=== PATIENT | female | born 1970 | race Caucasian/White ===

== ENCOUNTER 2016-05-12 20:25 | Emergency (ER) | payer OTHER ==
--- NOTE | 2016-05-12 22:39 | ED NURSING NOTES ---
Clinical Report - Nurses [facility] [address] [place] [address] 05/12/2016 20:26 Patient: POLLY CALHOUN TRIAGE Triage time 20:35 May 12 2016. --20:38 Carl Carney R.N. Acuity: LEVEL 3. Chief Complaint: (High Blood Sugar). Alert. JAVIER COMA SCORE: [place] Coma Scale: 15- eyes open spontaneously (4); best verbal response- oriented x 4 (5); best motor response- obeys commands (6). --20:45 Carl Carney R.N. 20:40 05/12/16. BP: 155/83. HR: 94. RR: 16. O2 saturation: 94%. Temp: 98.8 F (oral). Pain level now: 03/11. Additional comments: Slight MORGAN. --20:45 Carl Carney R.N. Weight: 121.1 kg stated. Height/Length: 62 inches Per Patient. BMI: 48.9. --20:37 Carl Carney R.N. Medications Abilify Oral. Atorvastatin Calcium Oral. Effexor XR Oral. Glimepiride Oral (Tablet 4 mg) 2 tablets, daily. LamoTRIgine Oral. Magnesium Oral. MetFORMIN HCl Oral. Omeprazole Oral. TraZODone HCl Oral. --20:46 Carl Carney R.N. Medication/allergy information source: the patient. --20:46 Carl Carney R.N. Allergies Latuda. [place]. Risperdal. --20:46 Carl Carney R.N. History Arrived by private vehicle. Historian: patient. Unaccompanied. Primary physician (Vernell Davenport). --20:38 Carl Carney R.N. ( High Blood Sugar associated with N/Dry heaves and MORGAN). This started just prior to arrival and today. She has had weakness. Treatment HAZMAT TECHNICIAN: None. PAST MEDICAL HX: Immunizations: status is unknown. The patient is post-menopausal. Denies current . SOCIAL HX: Light tobacco smoker (cigarette)- less than 1/2 a pack per day (smoked for 34 years). No alcohol use or drug use. No infectious disease exposure. ABUSE ASSESSMENT: No report of abuse. FALL RISK ASSESSMENT: Fall risk assessment completed. No fall risk identified. NUTRITIONAL RISK ASSESSMENT: The nutritional risk assessment revealed no deficiencies. FUNCTIONAL ASSESSMENT: Functional assessment: no impairments noted. LEARNING NEEDS ASSESSMENT: The learning needs assessment revealed no barriers. SKIN INTEGRITY ASSESSMENT: Skin integrity risk assessment completed. No skin integrity risk identified. --20:45 Carl Carney R.N. ( Pt states that she was recently seen at the [facility] for Bronchitis/Respiratory problems and placed on and finished a course of antibiotics.). --20:50 Carl Carney R.N. PROBLEMS: Bipolar Disorder. Elevated LFTs. Pneumonia. COPD - Chronic Obstructive Pulmonary Disease. Bronchitis. Diabetes Mellitus. --20:43 Carl Carney R.N. Short Term Memory Problems. --20:49 Carl Carney R.N. ADDITIONAL SURGERIES: Hysterectomy. --20:44 Carl Carney R.N. Interventions ID band on patient. To treatment room. --20:45 Carl Carney R.N. PHYSICAL ASSESSMENT Ambulatory to room. GENERAL / NEURO / PSYCH: Alert. Oriented X 4. Appears in pain. HEENT: No facial asymmetry noted. RESPIRATORY: Respirations not labored. CVS: Pulses within normal limits. GI / : Abdomen soft and nontender. SKIN: Skin intact. Skin is warm and dry. Normal skin turgor. --20:47 Carl Carney R.N. NURSING PROGRESS NOTES 20:40. Finger stick glucose: 253 mg/dL; performed by [employer]; result shown to the ED physician. --20:47 Carl Carney R.N. Patient gowned. Reassurance given to the patient. Patient identifiers checked. Call light placed in reach. Side rails up. Bed placed in lowest position. Brakes of bed on. Patient ready for evaluation- chart flagged and ED physician notified. --20:48 Carl Carney R.N. 21:30 05/12/2016 Site #1 started via IV in the right forearm with an 20g angiocath, with aseptic technique and good blood return; one attempt. Blood drawn: rainbow set. Labeled in the presence of the patient and sent to the lab. Saline lock flushed with 10 mL saline. --21:39 Carl Carney R.N. 22:34 05/12/2016 Started 1 gm of Ceftriaxone IVPB in bag #1 50 mL; at 100 mL/hr over 30 minute(s) via site #1; Allergies verified and confirmed 5 rights. IV patency established. IV site checked: no pain, redness, or swelling. IV flushed thoroughly pre- and post-medication administration. --22:44 Carl Carney R.N. DISPOSITION / DISCHARGE 23:03 05/12/2016 Site #1 removed upon discharge. --23:03 Joy Peterson R.N. 23:05/12/2016 Ceftriaxone IVPB Discontinued: bag #1 completed upon arrival. Total amount infused: 50 mL. IV patency established. IV site checked: no pain, redness, or swelling. IV flushed thoroughly. --23:03 Joy Peterson R.N. 23:04 05/12/16. Departure time: 23:May 12 2016. Condition at departure: improved and stable. The goals identified in the patient's plan of care were met. No learning barriers present. Discharge instructions provided and reviewed with the patient. Reviewed medication(s) side effects, precautions, dosing and course information. Prescription(s) given to the patient. Reviewed fever care instructions. Reviewed referral to a primary care physician for followup. Summary of care provided to patient via paper. Patient verbalized understanding. Written instructions provided in Yoruba. The patient was discharged home and unaccompanied at time of discharge. She left the Emergency Department ambulatory and via private vehicle. Patient driving. --23:04 Joy Peterson R.N. 23:04 05/12/16. BP: 149/90. HR: 102. RR: 18. O2 saturation: 93%. Temp: 98.2 F. Pain level now 2/10. --23:04 Joy Peterson R.N. Locked/Released at 05/12/2016 23:04 by Joy Peterson R.N.
--- NOTE | 2016-05-12 22:39 | ED NURSING NOTES ---
Clinical Report - Nurses [facility] [address] [place] [address] 05/12/2016 20:26 Patient: POLLY CALHOUN TRIAGE Triage time 20:35 May 12 2016. --20:38 Carl Carney R.N. Acuity: LEVEL 3. Chief Complaint: (High Blood Sugar). Alert. JAVIER COMA SCORE: [place] Coma Scale: 15- eyes open spontaneously (4); best verbal response- oriented x 4 (5); best motor response- obeys commands (6). --20:45 Carl Carnye R.N. 20:40 05/12/16. BP: 155/83. HR: 94. RR: 16. O2 saturation: 94%. Temp: 98.8 F (oral). Pain level now: 03/11. Additional comments: Slight MORGAN. --20:45 Carl Carney R.N. Weight: 121.1 kg stated. Height/Length: 62 inches Per Patient. BMI: 48.9. --20:37 Carl Carney R.N. Medications Abilify Oral. Atorvastatin Calcium Oral. Effexor XR Oral. Glimepiride Oral (Tablet 4 mg) 2 tablets, daily. LamoTRIgine Oral. Magnesium Oral. MetFORMIN HCl Oral. Omeprazole Oral. TraZODone HCl Oral. --20:46 Carl Carney R.N. Medication/allergy information source: the patient. --20:46 Carl Carney R.N. Allergies Latuda. [place]. Risperdal. --20:46 aCrl Carney R.N. History Arrived by private vehicle. Historian: patient. Unaccompanied. Primary physician (Vernell Davenport). --20:38 Carl Carney R.N. ( High Blood Sugar associated with N/Dry heaves and MORGAN). This started just prior to arrival and today. She has had weakness. 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 PAST MEDICAL HX: Immunizations: status is unknown. The patient is post-menopausal. Denies current . SOCIAL HX: Light tobacco smoker (cigarette)- less than 1/2 a pack per day (smoked for 34 years). No alcohol use or drug use. No infectious disease exposure. ABUSE ASSESSMENT: No report of abuse. FALL RISK ASSESSMENT: Fall risk assessment completed. No fall risk identified. NUTRITIONAL RISK ASSESSMENT: The nutritional risk assessment revealed no deficiencies. FUNCTIONAL ASSESSMENT: Functional assessment: no impairments noted. LEARNING NEEDS ASSESSMENT: The learning needs assessment revealed no barriers. SKIN INTEGRITY ASSESSMENT: Skin integrity risk assessment completed. No skin integrity risk identified. --20:45 Carl Carney R.N. ( Pt states that she was recently seen at the [facility] for Bronchitis/Respiratory problems and placed on and finished a course of antibiotics.). --20:50 Carl Carney R.N. PROBLEMS: Bipolar Disorder. Elevated LFTs. Pneumonia. COPD - Chronic Obstructive Pulmonary Disease. Bronchitis. Diabetes Mellitus. --20:43 Carl Carney R.N. Short Term Memory Problems. --20:49 Carl Carney R.N. ADDITIONAL SURGERIES: Hysterectomy. --20:44 Carl Carney R.N. Interventions ID band on patient. To treatment room. --20:45 Carl Carney R.N. PHYSICAL ASSESSMENT Ambulatory to room. GENERAL / NEURO / PSYCH: Alert. Oriented X 4. Appears in pain. HEENT: No facial asymmetry noted. RESPIRATORY: Respirations not labored. CVS: Pulses within normal limits. GI / : Abdomen soft and nontender. SKIN: Skin intact. Skin is warm and dry. Normal skin turgor. --20:47 Carl Carney R.N. NURSING PROGRESS NOTES 20:40. Finger stick glucose: 253 mg/dL; performed by [employer]; result shown to the ED physician. --20:47 Carl Carney R.N. Patient gowned. Reassurance given to the patient. Patient identifiers checked. Call light placed in reach. Side rails up. Bed placed in lowest position. Brakes of bed on. Patient ready for evaluation- chart flagged and ED physician notified. --20:48 Carl Carney R.N. 21:30 05/12/2016 Site #1 started via IV in the right forearm with an 20g angiocath, with aseptic technique and good blood return; one attempt. Blood drawn: rainbow set. Labeled in the presence of the patient and sent to the lab. Saline lock flushed with 10 mL saline. --21:39 Carl Carney R.N. 22:34 05/12/2016 Started 1 gm of Ceftriaxone IVPB in bag #1 50 mL; at 100 mL/hr over 30 minute(s) via site #1; Allergies verified and confirmed 5 rights. IV patency established. IV site checked: no pain, redness, or swelling. IV flushed thoroughly pre- and post-medication administration. --22:44 Carl Carney R.N. DISPOSITION / DISCHARGE 23:03 05/12/2016 Site #1 removed upon discharge. --23:03 Joy Peterson R.N. 23:05/12/2016 Ceftriaxone IVPB Discontinued: bag #1 completed upon arrival. Total amount infused: 50 mL. IV patency established. IV site checked: no pain, redness, or swelling. IV flushed thoroughly. --23:03 Joy Peterson R.N. 23:04 05/12/16. Departure time: 23:May 12 2016. Condition at departure: improved and stable. The goals identified in the patient's plan of care were met. No learning barriers present. Discharge instructions provided and reviewed with the patient. Reviewed medication(s) side effects, precautions, dosing and course information. Prescription(s) given to the patient. Reviewed fever care instructions. Reviewed referral to a primary care physician for followup. Summary of care provided to patient via paper. Patient verbalized understanding. Written instructions provided in Kazakh. The patient was discharged home and unaccompanied at time of discharge. She left the Emergency Department ambulatory and via private vehicle. Patient driving. --23:04 Joy Peterson R.N. 23:04 05/12/16. BP: 149/90. HR: 102. RR: 18. O2 saturation: 93%. Temp: 98.2 F. Pain level now 2/10. --23:04 Joy Peterson R.N. Locked/Released at 05/12/2016 23:04 by Joy Peterson R.N.
--- NOTE | 2016-05-12 22:39 | ED ORDER SUMMARY ---
..... Patient: POLLY CALHOUN OrderSheet [facility] VisitID: [id number] [address] [place] [address] 45y, F Registration Date/Time: 05/12/2016 ORDER SHEET Weight: 121.1 kg (stated) Allergies: Latuda, [place], Risperdal GENERAL ORDERS: CMP Urgent (20:35 05/12/2016 JRomanelli R.N. verbal order read back to Mady Vaughn) (Ack 20:45 AMcQuoid ER Tech1) (21:40 JRomanelli R.N.) UA-Culture if indicated Urgent (20:35 05/12/2016 JRomanelli R.N. verbal order read back to Mady Vaughn) (Ack 20:45 AMcQuoid ER Tech1) (20:50 JRomanelli R.N.) POC Glucose (20:36 05/12/2016 JRomanelli R.N. verbal order read back to Mady Vaughn) (Ack 20:45 AMcQuoid ER Tech1) (21:40 JRomanelli R.N.) Chest 2V Urgent (21:42 05/12/2016 HBivens A.R.N.P.) (Ack 21:43 AMcQuoid ER Tech1) (22:07 MCampbell) CBC w Diff Urgent (21:42 05/12/2016 HBivens A.R.N.P.) (Ack 21:43 AMcQuoid ER Tech1) (22:03 AMcQuoid ER Tech1) MEDICATION ORDERS: IV FLUIDS: IV Saline Lock (20:35 05/12/2016 JRomanelli R.N. verbal order read back to Mady Vaughn) (21:39 JRomanelli R.N.) IV NS : initial bolus 1000 mL (1000 mL/hr), then none - (NOW) (21:42 05/12/2016 HBivens A.R.N.P.) (Cancelled: Patient [id number] JRomanelli R.N.) Ceftriaxone IV 1 gm/50mL (NOW) (22:38 05/12/2016 HBivens A.R.N.P.) (22:44 JRomanelli R.N.) ORDER SHEET NOTES: [Electronically signed by Joy Peterson R.N. (23:04 05/12/2016)] [Electronically signed by Greer Ramirez (16:40 05/13/2016)] [Electronically locked/signed by Joy Peterson R.N. (23:04 05/12/2016)]
--- NOTE | 2016-05-12 22:39 | ED CLINICAL REPORT ---
Clinical Report - Physicians/Mid Levels [facility] [address] [place] [address] 05/12/2016 20:26 Patient: POLLY CALHOUN Time Seen: 21:00; initial patient contact, initial documentation, patient care assumed. Arrived- By private vehicle. Historian- patient. HISTORY OF PRESENT ILLNESS Chief Complaint: ABNORMAL GLUCOSE. This started today and is still present but is improving. The patient has had muscle aches. (sugar at home was 422). Similar symptoms previously: Chronically, milder. Recent medical care: The patient was seen recently in the office. ( went to x2 wks ago for uri stuff and feeling sick, was told she had bronchitis, some cough syrup given with codiene, cough pill and some other orange pill, pt still feels sick and doesn't feel good, still coughing, no f/u). REVIEW OF SYSTEMS The patient has had low grade fever of 100 F (for 2 weeks). No sore throat, sinus drainage, difficulty breathing, chest pain or abdominal pain. No vomiting or diarrhea. She has had nasal congestion. She has had a mild cough productive of yellow sputum. All systems otherwise negative, except as recorded above. PAST HISTORY See nurses notes. PROBLEMS: Bipolar Disorder. Elevated LFTs. Pneumonia. COPD - Chronic Obstructive Pulmonary Disease. Bronchitis. Diabetes Mellitus. --20:43 Carl Carney RBarbaraN. Short Term Memory Problems. --20:49 Carl Carney R.N. ADDITIONAL SURGERIES: Hysterectomy. --20:44 Carl Carney R.N. SOCIAL HISTORY Light tobacco smoker. No alcohol use or drug use. No recent travel. Is a local resident. FAMILY HISTORY Negative. ADDITIONAL NOTES The nursing notes have been reviewed with agreement regarding the chief complaint, HPI, ROS, PMH and patient medications and allergies. PHYSICAL EXAM Vital Signs: 05/12/2016 20:40 BP: 155/83. HR: 94. RR: 16. O2 saturation: 94%. Temp: 98.8 F. Pain level now: 03/11. Have been reviewed as normal and appear to be correct. Appearance: Alert. No acute distress. Eyes: Pupils equal, round and reactive to light. Eyes normal inspection. ENT: Ears normal. Nose normal. Pharynx normal. Neck: Normal inspection. Neck supple. CVS: Normal heart rate and rhythm. Heart sounds normal. Pulses normal. Respiratory: No respiratory distress. Breath sounds abnormal. Mild rales present diffusely in both lungs. Chest nontender. Abdomen: No visible injury. Soft and nontender. Moderately obese. Back: Normal inspection. Skin: Skin warm and dry. Normal skin color. No rash. Normal skin turgor. Extremities: Extremities exhibit normal ROM. No lower extremity edema. Neuro: Oriented X 3. No motor deficit. No sensory deficit. LABS, X-RAYS, AND EKG Chest X-ray: Infiltrate in the left lower lobe. Consistent with pneumonia. Normal Chest X-Ray. (and reviewed by dr singh). The X-rays were independently viewed by me. Laboratory Tests: UA-Culture if indicated: (EDER: 05/12/2016 20:32) ( [facility] 05/12/2016 20:59) Final results Test Result Flag Units (Reference) URINE COLOR YELLOW URINE APPEARANCE CLEAR URINE GLUCOSE 3+ (NEGATIVE) URINE BILIRUBIN NEGATIVE (NEGATIVE) URINE KETONE NEGATIVE (NEGATIVE) URINE SPECIFIC GRAVITY >= 1.030 (1.010-1.030) URINE PH 6.0 (5.0-8.0) URINE PROTEIN 2+ (NEGATIVE) URINE UROBILINOGEN 0.2 EU/dL (0.2-1.0) URINE NITRITE NEGATIVE (NEGATIVE) URINE BLOOD 1+ (NEGATIVE) URINE LEUK ESTERASE NEGATIVE (NEGATIVE) URINE RBC 1-3 rbc/hpf (0-1) URINE WBC 0-1 wbc/hpf (0-1) URINE EPITHELIAL CELLS 1-3 EPI/hpf (0-5) URINE BACTERIA NONE SEEN (NONE SEEN) URINE COMMENT CULT NOT INDICATED URINE CULTURES ARE SET-UP BASED ON THE FOLLOWING CRITERIA:POSITIVE NITRITEPOSITIVE LEUKOCYTE ESTERASEGREATER THAN 10 WHITE BLOOD CELLSMODERATE (2+) OR GREATER BACTERIA CBC w Diff: (EDER: 05/12/2016 21:30) ( [facility] 05/12/2016 21:52) Final results Test Result Flag Units (Reference) WHITE BLOOD COUNT 12.3 H K/uL (4.5-11.5) RED BLOOD COUNT 5.46 H M/uL (4.00-5.20) HEMOGLOBIN 15.5 gm/dL (12.0-16.0) HEMATOCRIT 46.2 H % (36.0-46.0) MEAN CELL VOLUME 85 fL (80-100) MEAN CORPUSCULAR HGB 29 pg (26-34) MEAN CORPUSCULAR HGB CONC 34 g/dL (31-37) RED CELL DISTRIBUTION WIDTH 13.6 % (11.6-14.8) PLATELET COUNT 290 K/uL (150-400) NEUTROPHIL % 55.2 % (50-75) LYMPH % 33.0 % (25-40) MONO % 5.2 % (3-14) EOSINOPHIL % 4.6 H % (0-4) BASOPHIL % 2.0 % (0-2) CMP: (EDER: 05/12/2016 21:30) ( MsgRcvd 05/12/2016 22:12) Final results Test Result Flag Units (Reference) GLUCOSE 207 H mg/dL (70-110) BUN 16 mg/dL (7-18) CREATININE 0.5 L mg/dL (0.6-1.3) Estimated GFR >60 mL/min Estimated GFR- >60 mL/min Note: Persistent reduction over 3 months in eGFR<60 mL/min/1.73 m2 defines CKD. Patients with eGFR values>=60 mL/min/1.73 m2 may also have CKD if evidence ofpersistent proteinuria. Additional information may be foundat www.kidney.org. SODIUM 138 mmol/L (136-145) POTASSIUM 3.7 mmol/L (3.5-5.1) CHLORIDE 100 mmol/L (98-107) CARBON DIOXIDE 24 mmol/L (21-32) CALCIUM 9.8 mg/dL (8.5-10.1) TOTAL PROTEIN 7.6 g/dL (6.4-8.2) ALBUMIN 3.6 g/dL (3.3-5.0) BILIRUBIN, TOTAL 0.2 mg/dL (0.0-1.0) ALKALINE PHOSPHATASE 150 H U/L (46-116) AST (SGOT) 70 H U/L (15-37) ALT (SGPT) 97 H U/L (12-78) . Bedside Tests: Glucose: mild hyperglycemia - 20:40. Finger stick glucose: 253 mg/dL; performed by tech; result shown to the ED physician. --20:47 Carl Carney R.N. (performed at bedside). PROGRESS AND PROCEDURES Course of Care: 22:38 05/12/16. pt does not want the ivf, and asking if she really needs them, agreed not to. Patient counseled in person regarding the patient's stable condition, test results and diagnosis. 22:38. Differential Diagnosis: Other possible considerations: dm, hyperglycemia, dka, uri, bronchitis, pneumonia. Above considerations are based on history and physical exam. Differential diagnosis was discussed with patient. Disposition: Discharged home in good and improved condition (22:39). Condition: good and stable. CLINICAL IMPRESSION Moderate hyperglycemia Bacterial and lobar pneumonia. Vital signs recorded and reviewed; empiric antibiotics given in the ED and prescribed. No hypoxemia, respiratory failure or sepsis. INSTRUCTIONS Alternate Tylenol (Acetaminophen) and Motrin (Ibuprofen) for fever, temperature greater than 101 degrees orally. Take according to label instructions. Drink plenty of fluids. Warnings: GENERAL WARNINGS: Return or contact your physician immediately if your condition worsens or changes unexpectedly, if not improving as expected, or if other problems arise. Specifically return if problem worsens. Prescription Medications: Zithromax 250 mg tablets: take 2 orally today, followed by 1 daily for the next 4 days. No refills. Substitution is permissible. Follow-up: Follow up with your doctor in about three days even if well. Call for an appointment. Summary of care provided to patient. Understanding of the discharge instructions verbalized by patient. (Electronically signed by Greer Ramirez A.R.N.P. 05/13/2016 16:40)
--- NOTE | 2016-05-12 22:39 | ED ORDER SUMMARY ---
..... Patient: POLLY CALHOUN OrderSheet [facility] VisitID: [id number] [address] [place] [address] 45y, F Registration Date/Time: 05/12/2016 ORDER SHEET Weight: 121.1 kg (stated) Allergies: [place], [place], Risperdal GENERAL ORDERS: CMP Urgent (20:35 05/12/2016 JRomanelli R.N. verbal order read back to Mady Vaughn) (Ack 20:45 AMcQuoid ER Tech1) (21:40 JRomanelli R.N.) UA-Culture if indicated Urgent (20:35 05/12/2016 JRomanelli R.N. verbal order read back to Mady Vaughn) (Ack 20:45 AMcQuoid ER Tech1) (20:50 JRomanelli R.N.) POC Glucose (20:36 05/12/2016 JRomanelli R.N. verbal order read back to Mady Vaughn) (Ack 20:45 AMcQuoid ER Tech1) (21:40 JRomanelli R.N.) Chest 2V Urgent (21:42 05/12/2016 HBivens A.R.N.P.) (Ack 21:43 AMcQuoid ER Tech1) (22:07 MCampbell) CBC w Diff Urgent (21:42 05/12/2016 HBivens A.R.N.P.) (Ack 21:43 AMcQuoid ER Tech1) (22:03 AMcQuoid ER Tech1) MEDICATION ORDERS: IV FLUIDS: IV Saline Lock (20:35 05/12/2016 JRomanelli R.N. verbal order read back to Mady Vaughn) (21:39 JRomanelli R.N.) IV NS : initial bolus 1000 mL (1000 mL/hr), then none - (NOW) (21:42 05/12/2016 HBivens A.R.N.P.) (Cancelled: Patient [id number] JRomanelli R.N.) Ceftriaxone IV 1 gm/50mL (NOW) (22:38 05/12/2016 HBivens A.R.N.P.) (22:44 JRomanelli R.N.) ORDER SHEET NOTES: [Electronically signed by Joy Peterson R.N. (23:04 05/12/2016)] [Electronically signed by Greer Ramirez (16:40 05/13/2016)] [Electronically locked/signed by Joy Peterson R.N. (23:04 05/12/2016)]
--- NOTE | 2016-05-13 06:20 | DIAGNOSTIC IMAGING REPORT ---
PROCEDURE: XR CHEST 2 VIEW INDICATION: FEVER TECHNIQUE: PA and lateral views. COMPARISON: Compared to chest x-ray 01/21/2016. FINDINGS: There are minor parenchymal change at the left lung base (most likely scarring). Lungs are otherwise clear. Heart and mediastinum are normal. Thorax is normal. IMPRESSION: 1. Negative chest.
--- NOTE | 2016-05-13 16:40 | ED MED RECONCILIATION SUMMARY ---
Patient: POLLY CALHOUN Medication Reconciliation Report [facility] VisitID: [id number] [address] [place] [address] 45y, F Registration Date/Time: 05/12/2016 Weight: 121.1 kg Height/Length: 62 in. BMI: 48.9 ALLERGIES: Latuda, [place], Risperdal The patient's Home Medications are listed below: THE FOLLOWING MEDICATIONS NEED TO BE RECONCILED: Abilify Oral Atorvastatin Calcium Oral Effexor XR Oral Glimepiride Oral (4 mg) 2 tablets, daily LamoTRIgine Oral Magnesium Oral MetFORMIN HCl Oral Omeprazole Oral TraZODone HCl Oral The source(s) of the original Home Medication information: patient The following Medications were given to the patient in the Emergency Department: Ceftriaxone [IVPB] IVPB bolus 0, then 1 gm 100 mL/hr, administered: 05/12/2016 10:34:00 PM The following Medications were prescribed to the patient: Zithromax 250 mg tablets: take 2 orally today, followed by 1 daily for the next 4 days. No refills. Substitution is permissible. -- Greer Ramirez A.R.N.P.
--- NOTE | 2016-05-13 16:40 | ED MAR SUMMARY ---
..... Medication Administration Record [facility] [address] [place] [address] Patient: POLLY CALHOUN Visit ID: [id number] 45y, F Weight: 121.1 kg Height/Length: 62 in BMI: 48.9 ALLERGIES: [place], [place], Risperdal Start 22:34 05/12/2016 Carl Carney, R.N., Stop 23:03 05/12/2016 Joy Peterson RMiguelito Medication Administered: CEFTRIAXONE [IVPB], Dose: 1 gm IVPB over 30 minute(s), Rate: 100 mL/hr, Dispensed: 50 mL bag, Site: #1 right forearm. Medication Ordered: Ceftriaxone IV 1 gm/50mL (NOW).
--- NOTE | 2016-05-13 16:40 | ED MAR SUMMARY ---
..... Medication Administration Record [facility] [address] [address] Patient: POLLY CALHOUN Visit ID: [id number] 45y, F Weight: 121.1 kg Height/Length: 62 in BMI: 48.9 ALLERGIES: [place], [place], Risperdal Start 22:34 05/12/2016 Carl Carney, R.N., Stop 23:03 05/12/2016 Joy Peterson RMiguelito Medication Administered: CEFTRIAXONE [IVPB], Dose: 1 gm IVPB over 30 minute(s), Rate: 100 mL/hr, Dispensed: 50 mL bag, Site: #1 right forearm. Medication Ordered: Ceftriaxone IV 1 gm/50mL (NOW).
--- NOTE | 2016-05-13 16:40 | ED MED RECONCILIATION SUMMARY ---
Patient: POLLY CALHOUN Medication Reconciliation Report [facility] VisitID: [id number] [address] [place] [address] 45y, F Registration Date/Time: 05/12/2016 Weight: 121.1 kg Height/Length: 62 in. BMI: 48.9 ALLERGIES: Latuda, [place], Risperdal The patient's Home Medications are listed below: THE FOLLOWING MEDICATIONS NEED TO BE RECONCILED: Abilify Oral Atorvastatin Calcium Oral Effexor XR Oral Glimepiride Oral (4 mg) 2 tablets, daily LamoTRIgine Oral Magnesium Oral MetFORMIN HCl Oral Omeprazole Oral TraZODone HCl Oral The source(s) of the original Home Medication information: patient The following Medications were given to the patient in the Emergency Department: Ceftriaxone [IVPB] IVPB bolus 0, then 1 gm 100 mL/hr, administered: 05/12/2016 10:34:00 PM The following Medications were prescribed to the patient: Zithromax 250 mg tablets: take 2 orally today, followed by 1 daily for the next 4 days. No refills. Substitution is permissible. -- Greer Ramirez A.R.N.P.
--- NOTE | 2016-05-13 16:40 | ED DISCHARGE INSTRUCTIONS ---
Patient: POLLY CALHOUN General Instructions [facility] VisitID: [id number] [address] [place] [address] 45y, F Registration Date/Time: 05/12/2016 Moderate hyperglycemia Bacterial and lobar pneumonia. Vital signs recorded and reviewed; empiric antibiotics given in the ED and prescribed. No hypoxemia, respiratory failure or sepsis. INSTRUCTIONS Alternate Tylenol (Acetaminophen) and Motrin (Ibuprofen) for fever, temperature greater than 101 degrees orally. Take according to label instructions. Drink plenty of fluids. Warnings: GENERAL WARNINGS: Return or contact your physician immediately if your condition worsens or changes unexpectedly, if not improving as expected, or if other problems arise. Specifically return if problem worsens. Prescription Medications: Zithromax 250 mg tablets: take 2 orally today, followed by 1 daily for the next 4 days. No refills. Substitution is permissible. Follow-up: Follow up with your doctor in about three days even if well. Call for an appointment. Summary of care provided to patient. Understanding of the discharge instructions verbalized by patient. ADDITIONAL INFORMATION Diabetes with High Blood Sugar You have been treated for high blood sugar (hyperglycemia). This may be becauseof an infection or other illness;eating too many sweets or starches ; not taking enough insulin. Home care High blood sugar may cause symptoms that you can learn to recognize, such as these: If you feel like your blood sugar may be too high, measure it using a blood or urine test. If it is above your usual range, use the "sliding scale"rRegular insulin dose your doctor gave you to correct this. If no "sliding scale" orders were given, contact your doctor for further advice. If your blood sugar is over 300, and you can't reach your doctor, go to the hospital emergency room. Monitor and write down your blood sugars - and insulin dose, if you take insulin - atleast twice a day. Do this before breakfast and before dinner. Do this for the next 3 to 5 days. Follow-up care Follow up with your health care provderduring the next week to review your blood sugar records. You will find out if you need to adjust your dose of insulin or other medicine for blood sugar. When to seek medical care Get prompt medical attention if either of these occur: High blood sugar.Symptoms are frequent urination, feeling dizzy, thirst, headache, nausea or vomiting, abdominal pain, and drowsiness or loss of consciousness. Low blood sugar. Symptoms are fatigue, headache, shakes, excess sweating, hunger, anxiety, reduced vision, drowsiness, weakness, confusion or loss of consciousness, and seizure. Diabetes (General Information) Cells of the body need glucose (sugar) for fuel. Insulin is the hormone in the body that lets glucose move from the blood into the cells. Diabetes is a chronic health condition where the body is not able to produce enough insulin, or does not respond well to its own insulin. Because the glucose in the blood cannot get into the cells, it builds up in the blood causing high blood sugar (hyperglycemia). Your actual blood sugar level is a result of the balance between several factors. These include what kind of food you eat and how much of it you eat, how much exercise you get, and the amount of insulin present in your body. Eating too much of the wrong kinds of food or not taking diabetes medicine on time can cause high blood sugar. Infections can cause high blood sugar even if you are taking medicines correctly. Missing meals, not eating enough food, or taking too much diabetes medicine can lead to low blood sugar. Untreated over long periods of time, diabetes can cause serious problems such as heart disease, stroke, kidney failure, blindness, nerve pain or loss of feeling in the legs and feet, and gangrene of the feet. With good treatment keeping your blood sugar under control, you can prevent or delay the complications of diabetes. Normal blood sugar levels are 70-130 one to two hours before a meal and not more than 180 two hours after a meal. Home Care: Follow your prescribed diabetic diet and take insulin or oral diabetic medicine exactly as ordered. Monitor blood sugars as advised. Keep a log of your results. This will help your doctor adjust your medicines to keep your blood sugar under control. Try to achieve your ideal weight. Proper diet and exercise can reduce or eliminate the need to take diabetes medicine. Avoid tobacco smoking, which worsens the effect of diabetes on your circulation. The risk of a heart attack in a diabetic is 15 times more likely if you smoke. Pay attention to good foot care. If you have lost feeling in your feet you may not notice an injury or infection. Check your feet and between your toes at least once a week. Wear a medical alert bracelet or carry a card in your wallet explaining that you are diabetic. In the event that you become very ill and are unable to give this information, it will help medical personnel provide proper care. If you become sick with a cold, the flu, or an infection (viral or bacterial), please do the following: Review your diabetes sick plan and contact your physician as instructed. You may have been advised to call the doctor immediately if: Your blood sugar is above 240 while taking your diabetes medication Your urine ketone levels are above normal or showing high levels of ketones You have been vomiting more than 6 hours You experience difficulty to trouble breathing You develop a high fever or you have had a fever for a couple of days and you aren't getting better You become light-headed and more sleepy than usual Keep taking your oral diabetes medicine (pills) even if you have been vomiting and feeling sick. Contact your doctor immediately for advice because you may need insulin to lower your blood sugar until you recover from your illness. Keep taking your insulin, even if you have been vomiting and feeling sick. Call your doctor immediately and ask if a temporary adjustment of your insulin dose is needed based on your blood glucose (sugar) results. Check your blood sugar every 2 to 4 hours, or at least 4 times a day. Check your keytones often. If you are vomiting and having diarrhea, monitor them more frequently. Don't skip meals. Try to eat small meals on a regular schedule, even if you do not have an appetite. Drink water or other calorie-free, non-caffeinated liquids to stay hydrated. If you are nauseated or vomiting, drink small amounts (sips, a teaspoon) every 5 minutes. To prevent dehydration, try to drink a cup or 8 ounces of fluids every hour while you are awake. Always carry a source of fast-acting sugar with you in case you get symptoms of low blood sugar (below 70). At the first sign of low blood sugar, eat or drink 15 to 20 grams of fast-acting sugar to raise your blood sugar. Examples include: 3 to 4 glucose tablets (found at most drugstores) 4 ounces (1/2 cup) of regular (not diet) softdrinks 4 ounces (1/2 cup) of any fruit juice 8 ounces (1 cup) of milk 5 to 6 pieces of hard candy 1 tablespoon of honey Check your blood sugar 15 minutes after treating yourself. If it is still low (below 70), take another 15 to 20 grams of fast-acting sugar. Test again in 15 minutes. If it returns to normal (70 or above), eat a snack or meal to keep your blood sugar in a safe range. If it remains low, call your doctor or go to an emergency room. Follow Up with your doctor as advised by our staff. For more information, contact the [place] [employer]. www.diabetes.org or 561-701-4848. Get Prompt Medical Attention if any of the following occur: HIGH BLOOD SUGAR: frequent urination, dizziness, drowsiness, thirst, headache, nausea or vomiting, abdominal pain, vision changes, fast breathing, confusion or loss of consciousness LOW BLOOD SUGAR: fatigue, headache, shakes, excess sweating, hunger, feeling anxious or restless, vision changes, drowsiness, weakness, confusion or loss of consciousness Chest pain or shortness of breath Dizziness or fainting Weakness of an arm or leg or one side of the face Trouble with speech or vision Fever Control (Adult) A fever is a natural reaction of the body to an illness. In most cases, the temperature itself is not harmful. It actually helps the body fight infections. A fever does not need to be treated unless you feel very uncomfortable. Home Care If you feel warm, check your temperature. If you feel very uncomfortable and your temperature is at or higher than 100.4F (38C) oral, you may take acetaminophen (Tylenol) every 4 to 6 hours. If you cant take or keep down oral medicine, ask your pharmacist for Tylenol suppositories, which you can get without a prescription. If the fever does not respond to acetaminophen within 1 hour, take ibuprofen (Advil or Motrin). If this works, keep taking the ibuprofen every 6 to 8 hours. Note: If you have chronic liver or kidney disease or ever had a stomach ulcer or GI bleeding, talk with your doctor before using these medications. If either medication alone does not keep the fever down, you may alternate the two medicines every 3 to 4 hours, only if your healthcare provider has instructed you to do so. For example, take Motrin then wait 3 hours, take Tylenol then wait 3 hours, take Motrin, and so on. Follow your healthcare providers instructions exactly. Clothing: Keep clothing light because excess body heat is lost through the skin. The fever will go up if you wear extra layers or wrap in blankets. Fluids: Fever causes the body to lose water through evaporation. Drink plenty of fluids such as water, juice, clear sodas, karl amaris, or lemonade. Do not use aspirin in anyone under 18 years of age who is ill with a fever. It can cause severe liver damage. Follow Up with your doctor or as advised by our staff if you do not get better after 48 hours. Get Prompt Medical Attention if any of the following occur: Fever does not get better after taking fever medication Fast or difficult breathing Earache, sinus pain, stiff or painful neck, headache, repeated diarrhea or vomiting You feel unusually irritable, drowsy, or confused A rash appears You feel weak or dizzy, or that you might faint Azithromycin Oral tablet What is this medicine? AZITHROMYCIN (az ith iglesia BARRON sin) is a macrolide antibiotic. It is used to treat or prevent certain kinds of bacterial infections. It will not work for colds, flu, or other viral infections. How should I use this medicine? Take this medicine by mouth with a full glass of water. Follow the directions on the prescription label. The tablets can be taken with food or on an empty stomach. If the medicine upsets your stomach, take it with food. Take your medicine at regular intervals. Do not take your medicine more often than directed. Take all of your medicine as directed even if you think your are better. Do not skip doses or stop your medicine early. Talk to your woodworking bench carpenter regarding the use of this medicine in children. Special care may be needed. What side effects may I notice from receiving this medicine? Side effects that you should report to your doctor or health child care specialist as soon as possible: allergic reactions like skin rash, itching or hives, swelling of the face, lips, or tongue confusion, nightmares or hallucinations dark urine difficulty breathing hearing loss irregular heartbeat or chest pain pain or difficulty passing urine redness, blistering, peeling or loosening of the skin, including inside the mouth white patches or sores in the mouth yellowing of the eyes or skin Side effects that usually do not require medical attention (report to your doctor or health child care specialist if they continue or are bothersome): diarrhea dizziness, drowsiness headache stomach upset or vomiting tooth discoloration vaginal irritation What may interact with this medicine? Do not take this medicine with any of the following medications: lincomycin This medicine may also interact with the following medications: amiodarone antacids cyclosporine digoxin magnesium nelfinavir phenytoin warfarin What if I miss a dose? If you miss a dose, take it as soon as you can. If it is almost time for your next dose, take only that dose. Do not take double or extra doses. Where should I keep my medicine? Keep out of the reach of children. Store at room temperature between 15 and 30 degrees C (59 and 86 degrees F). Throw away any unused medicine after the expiration date. What should I tell my health care provider before I take this medicine? They need to know if you have any of these conditions: kidney disease liver disease irregular heartbeat or heart disease an unusual or allergic reaction to azithromycin, erythromycin, other macrolide antibiotics, foods, dyes, or preservatives or trying to get breast-feeding What should I watch for while using this medicine? Tell your doctor or health child care specialist if your symptoms do not improve. Do not treat diarrhea with over the counter products. Contact your doctor if you have diarrhea that lasts more than 2 days or if it is severe and watery. This medicine can make you more sensitive to the sun. Keep out of the sun. If you cannot avoid being in the sun, wear protective clothing and use sunscreen. Do not use sun lamps or tanning beds/booths. You have been given the following additional information: Diabetic Hyperglycemia Diabetes, General Info Fever Control (Adult) Azithromycin Oral tablet (Electronically signed by Greer Ramirez A.R.NPedro 05/13/2016 16:40)
== END 2016-05-12 23:04 | disposition home or self-care (01) ==
LOC: ED SRH 20:25
DX: J18.1 Lobar pneumonia, unspecified organism (principal); E11.65 Type 2 diabetes mellitus with hyperglycemia; F17.200 Nicotine dependence, unspecified, uncomplicated; Z79.899 Other long term (current) drug therapy; Z79.84 Long term (current) use of oral hypoglycemic drugs; Z88.8 Allergy status to other drugs, medicaments and biological substances
CPT/HCPCS: 90004; 90098; 90100; 95059

== ENCOUNTER 2016-05-16 09:52 | Emergency (ER) | payer OTHER ==
--- NOTE | 2016-05-16 11:25 | ED ORDER SUMMARY ---
..... Patient: POLLY CALHOUN OrderSheet [facility] VisitID: [id number] [place] [address] 45y, F Registration Date/Time: 05/16/2016 ORDER SHEET Weight: 31.7 kg (stated) Allergies: Latuda, [place], Risperdal GENERAL ORDERS: Chest 2V (recent porssible pneumonia - on antibiotics) Urgent (10:05/16/2016 PHutchinson DO) (Ack 10:13 RKaruga) (11:47 Katelyn R.N.) Police Aide (Continuous) (10:05/16/2016 PHutchinson DO) (Ack 10:22 Katelyn R.N.) (11:00 Katelyn R.N.) UA-Culture if indicated Urgent (10:05/16/2016 PHutchinson DO) (Ack 10:13 RKaruga) (10:38 Katelyn R.N.) Cardiac Panel Stat (10:05/16/2016 PHutchinson DO) (Ack 10:13 RKaruga) (10:38 Katelyn R.N.) BNP Urgent (10:05/16/2016 PHutchinson DO) (Ack 10:13 RKaruga) (10:38 Katelyn R.N.) D-Dimer Urgent (10:05/16/2016 PHutchinson DO) (Ack 10:13 RKaruga) (10:38 Katelyn R.N.) Amylase Urgent (10:05/16/2016 PHutchinson DO) (Ack 10:13 RKaruga) (10:38 Katelyn R.N.) Lipase Urgent (10:05/16/2016 PHutchinson DO) (Ack 10:13 RKaruga) (10:38 Katelyn R.N.) PCT (Procalcitonin) Urgent (10:05/16/2016 PHutchinson DO) (Ack 10:13 RKaruga) (10:38 Katelyn R.N.) Oxygen (2 L/min) (NC) (10:05/16/2016 PHutchinson DO) (Ack 10:22 Katelyn R.N.) (11:00 Katelyn R.N.) Pulse oximeter (10:05/16/2016 [facility]) (Ack 10:22 Katelyn R.N.) (11:00 Katelyn R.N.) EKG - ER Stat (10:05/16/2016 [facility]) (10:13 RKaruga) Vitals (10:05/16/2016 [facility]) (Ack 10:22 Katelyn R.N.) (10:38 Katelyn R.N.) Acetone, Serum (quantitative) Urgent (10:05/16/2016 [facility]) (Ack 10:13 RKaruga) (11:47 Katelyn R.N.) Old Records (need visit from [facility] YESTERDAY) (10:05/16/2016 [facility]) (Ack 10:23 RKaruga) (11:47 Katelyn R.N.) D-Dimer Urgent (10:05/16/2016 [facility]) (Ack 10:22 Katelyn R.N.) (11:47 Katelyn R.N.) MEDICATION ORDERS: IV FLUIDS: IV NS : initial bolus 1000 mL (1000 mL/hr), then 500 mL/hr for X2 (NOW) (10:05/16/2016 [facility]) (Ack 10:22 Katelyn R.N.) (10:58 Katelyn R.N.) Zofran IV 4 mg (NOW) (10:05/16/2016 [facility]) (Ack 10:22 Katelyn R.N.) (11:00 Katelyn R.N.) ORDER SHEET NOTES: [Electronically signed by Akosua Cardenas R.N. (12:13 05/16/2016)] [Electronically signed by Jurgen Ellison DO (08:26 05/17/2016)] [Electronically locked/signed by Akosua Cardenas R.N. (12:13 05/16/2016)]
--- NOTE | 2016-05-16 11:25 | ED CLINICAL REPORT ---
Clinical Report - Physicians/Mid Levels [facility] [address] [place] [address] 05/16/2016 9:53 Patient: POLLY CALHOUN Time Seen: 09:58. Arrived- By private vehicle. Historian- patient. HISTORY OF PRESENT ILLNESS Chief Complaint: NAUSEA and VOMITING ELEVATED BLOOD SUGAR. At its maximum, severity described as moderate. When seen in the E.D., severity described as moderate. Modifying factors- worsened by movement and food. Relieved by rest. This started yesterday and is still present. It was gradual in onset and has been waxing/waning. The patient has had loss of appetite, fatigue and generalized weakness. Similar symptoms previously: Recent medical care: The patient was seen recently at this facility in the emergency department. Diagnosis: (Pneumonia; elevated blood sugar). ( Presumed pneumonia based on her clinical history of suggestion of infiltrate on CXR - radiologist report: "FINDINGS: There are minor parenchymal change at the left lung base (most likely scarring). Lungs are otherwise clear. Heart and mediastinum are normal. Thorax is normal. "). REVIEW OF SYSTEMS The patient has had a hysterectomy. No fever, sore throat, sinus drainage, difficulty breathing or chest pain. No abdominal pain, black stools, bloody stools, chills or difficulty with urination. No skin rash, back pain or headache. The patient has had nasal congestion, a mild cough, nausea and diarrhea. She has had vomiting. The vomiting has occurred twice. No bilious emesis, feculent emesis, blood-tinged emesis, coffee-grounds emesis or frankly bloody emesis. No difficulty with ambulation. All systems otherwise negative, except as recorded above. PAST HISTORY See nurses notes. PCP: Dr Ramos PROBLEMS: Bipolar Disorder. Elevated LFTs. Pneumonia. COPD - Chronic Obstructive Pulmonary Disease. Bronchitis. Diabetes Mellitus (type II on orals). Short Term Memory Problems. Obesity Sleep apena SURGERIES: Hysterectomy Colonoscopy. Medications: Azithromycin Oral 250 mg, daily (one dose left). Magnesium Oral. MetFORMIN HCl Oral. Omeprazole Oral. TraZODone HCl Oral. Abilify Oral. Atorvastatin Calcium Oral. Effexor XR Oral. Glimepiride Oral (Tablet 4 mg) 2 tablets, daily. LamoTRIgine Oral. Allergies: Latuda. [place]. Risperdal. SOCIAL HISTORY Smoker- current status unknown. No alcohol use or drug use. Is a local resident. ADDITIONAL NOTES The nursing notes have been reviewed. PHYSICAL EXAM Vital Signs: 05/16/2016 09:58 BP: 131/79. HR: 102. RR: 20. O2 saturation: 93%. Temp: 98.2 F. Appearance: Alert. Patient in mild distress. Eyes: Eyes normal inspection. No scleral icterus or pale conjunctivae. ENT: Ears normal. Nose normal. Neck: Normal inspection. CVS: Normal heart rate and rhythm. Pulses normal. Respiratory: No respiratory distress. Breath sounds normal. Abdomen: No visible injury. Soft and nontender. Back: Normal inspection. Skin: Skin warm and dry. Normal skin color. No rash. Normal skin turgor. Extremities: Extremities exhibit normal ROM. No calf tenderness. No lower extremity edema. Neuro: Oriented X 3. No motor deficit. No sensory deficit. LABS, X-RAYS, AND EKG EKG: EKG time: (10:32). Regular narrow-complex tachycardia (ventricular rate 100). Sinus tachycardia. Normal P waves. Normal ARACELI. Normal QRS complex. Nondiagnostic Q waves in lead III. Normal axis. Non-specific ST segment / T wave abnormalities. Non-specific T wave flattening in lead V3. The study has been interpreted contemporaneously by me. The EKG appears to be a good tracing. Rhythm Strip #1: Normal sinus rhythm. Sinus tachycardia. Regular rhythm. Narrow QRS complexes. Chest X-ray: No acute disease. Normal lung markings present. Normal heart size. Mediastinum normal. Great vessels normal. Soft tissues normal. No infiltrate. No fracture. No bony lesion present. Views: PA and lateral. Technique: good. The X-rays were interpreted contemporaneously by me. A comparison with prior films reveals that the findings are unchanged. Laboratory Tests: UA-Culture if indicated: (EDER: 05/16/2016 10:05) ( MsgRcvd 05/16/2016 10:51) Final results Test Result Flag Units (Reference) URINE COLOR YELLOW URINE APPEARANCE CLEAR URINE GLUCOSE 3+ (NEGATIVE) URINE BILIRUBIN NEGATIVE (NEGATIVE) URINE KETONE 1+ (NEGATIVE) URINE SPECIFIC GRAVITY 1.020 (1.010-1.030) URINE PH 6.0 (5.0-8.0) URINE PROTEIN 2+ (NEGATIVE) URINE UROBILINOGEN 0.2 EU/dL (0.2-1.0) URINE NITRITE NEGATIVE (NEGATIVE) URINE BLOOD TRACE-INTACT (NEGATIVE) URINE LEUK ESTERASE NEGATIVE (NEGATIVE) URINE RBC NONE SEEN rbc/hpf (0-1) URINE WBC 0-1 wbc/hpf (0-1) URINE EPITHELIAL CELLS 0-1 EPI/hpf (0-5) URINE BACTERIA TRACE (<1+) (NONE SEEN) URINE COMMENT CULT NOT INDICATED URINE CULTURES ARE SET-UP BASED ON THE FOLLOWING CRITERIA:POSITIVE NITRITEPOSITIVE LEUKOCYTE ESTERASEGREATER THAN 10 WHITE BLOOD CELLSMODERATE (2+) OR GREATER BACTERIA CBC w Diff: (DEER: 05/16/2016 10:30) ( [facility] 05/16/2016 10:45) Final results Test Result Flag Units (Reference) WHITE BLOOD COUNT 10.7 K/uL (4.5-11.5) RED BLOOD COUNT 5.48 H M/uL (4.00-5.20) HEMOGLOBIN 15.5 gm/dL (12.0-16.0) HEMATOCRIT 46.5 H % (36.0-46.0) MEAN CELL VOLUME 85 fL (80-100) MEAN CORPUSCULAR HGB 28 pg (26-34) MEAN CORPUSCULAR HGB CONC 33 g/dL (31-37) RED CELL DISTRIBUTION WIDTH 13.5 % (11.6-14.8) PLATELET COUNT 276 K/uL (150-400) NEUTROPHIL % 65.0 % (50-75) LYMPH % 26.9 % (25-40) MONO % 3.8 % (3-14) EOSINOPHIL % 3.4 % (0-4) BASOPHIL % 0.9 % (0-2) [id number]: (EDER: 05/16/2016 10:30) ( [facility]16[facility] 10:53) Final results Test Result Flag Units (Reference) D-DIMER QUANTITATIVE 0.37 ug/mLFEU (0.27-0.52) The primary value of this quantitative assay relates toits negative predictive value (i.e. exclusion) of pulmonaryembolism/deep vein thrombosis/DIC.Elevated levels of d-dimer may also occur with:, age, cancer, inflammation, liver disease,post-op, infection, hematoma, coronary disease, peripheralarteriopathy, bleeding disorders and thrombolytic treatment.Results should be correlated with other clinical andradiological data.Testing Methodology: Latex Immunoassay Acetone, Serum: (EDER: 05/16/2016 10:30) ( [facility] 05/16/2016 10:58) Final results Test Result Flag Units (Reference) ACETONE, SERUM QUALITATIVE NEGATIVE (NEGATIVE) BNP: (EDER: 05/16/2016 10:30) ( [facility] 05/16/2016 11:13) Final results Test Result Flag Units (Reference) B-TYPE NATRIURETIC PEPTIDE < 5.0 L pg/ml (5-100) CHEM 13 PANEL: (EDER: 05/16/2016 10:30) ( [facility] 05/16/2016 11:03) IP Test Result Flag Units (Reference) GLUCOSE 276 H mg/dL (70-110) BUN 12 mg/dL (7-18) CREATININE 0.6 mg/dL (0.6-1.3) Estimated GFR >60 mL/min Estimated GFR- >60 mL/min Note: Persistent reduction over 3 months in eGFR<60 mL/min/1.73 m2 defines CKD. Patients with eGFR values>=60 mL/min/1.73 m2 may also have CKD if evidence ofpersistent proteinuria. Additional information may be foundat [email or web address].org. SODIUM 138 mmol/L (136-145) POTASSIUM 4.2 mmol/L (3.5-5.1) CHLORIDE 100 mmol/L (98-107) CARBON DIOXIDE 23 mmol/L (21-32) CALCIUM 9.7 mg/dL (8.5-10.1) CPK 54 U/L (24-260) . Pulse Oximetry: 05/16/2016 09:58 O2 saturation: 93%. (FIO2 - room air). Interpretation: hypoxemia. PROGRESS AND PROCEDURES Course of Care: Made f/u appt for pt with [facility], but she refused to accept the appt time - states she may have a pulmonary appt on that day, so we cancelled the appt per her request. Patient is stable. Physical exam findings are improved. Symptoms much better. Patient/family counseled. Old ED and clinic records reviewed. Patient has had multiple ED visits (GARY with 8 visits to area ED's in past 12 months - PRMCE x 5; CVH x3; [facility] records reviewed). Disposition: Discharged. Condition: stable and improved. CLINICAL IMPRESSION Diarrhea Nausea. Vomiting with nausea. Stable COPD. Chronic, moderately well controlled type 2 diabetes with hyperglycemia. INSTRUCTIONS Do not work for three days. Drink plenty of fluids. Do not smoke. Seek medical help to quit smoking. Warnings: Further evaluation is necessary in order to recheck abnormal lab, obtain test results, conduct further tests and assess the possibility of serious illness. It is very important to follow up with a physician. GENERAL WARNINGS: Return or contact your physician immediately if your condition worsens or changes unexpectedly, if not improving as expected, or if other problems arise. Prescription Medications: Zofran (orally disintegrating tablets) 4 mg: take 1 orally every 8 hours as needed for nausea and vomiting. Dispense ten (10). No refill. Substitution is permissible. Follow-up: Follow up with your doctor at the [facility]; there is a walk-in clinic at the [facility] available 7 days per week for your convenience. Call for the next available appointment. Follow up with a yarn man in about five days as scheduled. (Electronically signed by Jurgen Ellison DO 05/17/2016 8:26)
--- NOTE | 2016-05-16 11:25 | ED CLINICAL REPORT ---
Clinical Report - Physicians/Mid Levels [facility] [address] [place] [place] [address] 05/16/2016 9:53 Patient: POLLY CALHOUN Time Seen: 09:58. Arrived- By private vehicle. Historian- patient. HISTORY OF PRESENT ILLNESS Chief Complaint: NAUSEA and VOMITING ELEVATED BLOOD SUGAR. At its maximum, severity described as moderate. When seen in the E.D., severity described as moderate. Modifying factors- worsened by movement and food. Relieved by rest. This started yesterday and is still present. It was gradual in onset and has been waxing/waning. The patient has had loss of appetite, fatigue and generalized weakness. Similar symptoms previously: Recent medical care: The patient was seen recently at this facility in the emergency department. Diagnosis: (Pneumonia; elevated blood sugar). ( Presumed pneumonia based on her clinical history of suggestion of infiltrate on CXR - radiologist report: "FINDINGS: There are minor parenchymal change at the left lung base (most likely scarring). Lungs are otherwise clear. Heart and mediastinum are normal. Thorax is normal. "). REVIEW OF SYSTEMS The patient has had a hysterectomy. No fever, sore throat, sinus drainage, difficulty breathing or chest pain. No abdominal pain, black stools, bloody stools, chills or difficulty with urination. No skin rash, back pain or headache. The patient has had nasal congestion, a mild cough, nausea and diarrhea. She has had vomiting. The vomiting has occurred twice. No bilious emesis, feculent emesis, blood-tinged emesis, coffee-grounds emesis or frankly bloody emesis. No difficulty with ambulation. All systems otherwise negative, except as recorded above. PAST HISTORY See nurses notes. PCP: Dr Ramos PROBLEMS: Bipolar Disorder. Elevated LFTs. Pneumonia. COPD - Chronic Obstructive Pulmonary Disease. Bronchitis. Diabetes Mellitus (type II on orals). Short Term Memory Problems. Obesity Sleep apena SURGERIES: Hysterectomy Colonoscopy. Medications: Azithromycin Oral 250 mg, daily (one dose left). Magnesium Oral. MetFORMIN HCl Oral. Omeprazole Oral. TraZODone HCl Oral. Abilify Oral. Atorvastatin Calcium Oral. Effexor XR Oral. Glimepiride Oral (Tablet 4 mg) 2 tablets, daily. LamoTRIgine Oral. Allergies: Latuda. [place]. Risperdal. SOCIAL HISTORY Smoker- current status unknown. No alcohol use or drug use. Is a local resident. ADDITIONAL NOTES The nursing notes have been reviewed. PHYSICAL EXAM Vital Signs: 05/16/2016 09:58 BP: 131/79. HR: 102. RR: 20. O2 saturation: 93%. Temp: 98.2 F. Appearance: Alert. Patient in mild distress. Eyes: Eyes normal inspection. No scleral icterus or pale conjunctivae. ENT: Ears normal. Nose normal. Neck: Normal inspection. CVS: Normal heart rate and rhythm. Pulses normal. Respiratory: No respiratory distress. Breath sounds normal. Abdomen: No visible injury. Soft and nontender. Back: Normal inspection. Skin: Skin warm and dry. Normal skin color. No rash. Normal skin turgor. Extremities: Extremities exhibit normal ROM. No calf tenderness. No lower extremity edema. Neuro: Oriented X 3. No motor deficit. No sensory deficit. LABS, X-RAYS, AND EKG EKG: EKG time: (10:32). Regular narrow-complex tachycardia (ventricular rate 100). Sinus tachycardia. Normal P waves. Normal ARACELI. Normal QRS complex. Nondiagnostic Q waves in lead III. Normal axis. Non-specific ST segment / T wave abnormalities. Non-specific T wave flattening in lead V3. The study has been interpreted contemporaneously by me. The EKG appears to be a good tracing. Rhythm Strip #1: Normal sinus rhythm. Sinus tachycardia. Regular rhythm. Narrow QRS complexes. Chest X-ray: No acute disease. Normal lung markings present. Normal heart size. Mediastinum normal. Great vessels normal. Soft tissues normal. No infiltrate. No fracture. No bony lesion present. Views: PA and lateral. Technique: good. The X-rays were interpreted contemporaneously by me. A comparison with prior films reveals that the findings are unchanged. Laboratory Tests: UA-Culture if indicated: (EDER: 05/16/2016 10:05) ( MsgRcvd 05/16/2016 10:51) Final results Test Result Flag Units (Reference) URINE COLOR YELLOW URINE APPEARANCE CLEAR URINE GLUCOSE 3+ (NEGATIVE) URINE BILIRUBIN NEGATIVE (NEGATIVE) URINE KETONE 1+ (NEGATIVE) URINE SPECIFIC GRAVITY 1.020 (1.010-1.030) URINE PH 6.0 (5.0-8.0) URINE PROTEIN 2+ (NEGATIVE) URINE UROBILINOGEN 0.2 EU/dL (0.2-1.0) URINE NITRITE NEGATIVE (NEGATIVE) URINE BLOOD TRACE-INTACT (NEGATIVE) URINE LEUK ESTERASE NEGATIVE (NEGATIVE) URINE RBC NONE SEEN rbc/hpf (0-1) URINE WBC 0-1 wbc/hpf (0-1) URINE EPITHELIAL CELLS 0-1 EPI/hpf (0-5) URINE BACTERIA TRACE (<1+) (NONE SEEN) URINE COMMENT CULT NOT INDICATED URINE CULTURES ARE SET-UP BASED ON THE FOLLOWING CRITERIA:POSITIVE NITRITEPOSITIVE LEUKOCYTE ESTERASEGREATER THAN 10 WHITE BLOOD CELLSMODERATE (2+) OR GREATER BACTERIA CBC w Diff: (EDER: 05/16/2016 10:30) ( [facility] 05/16/2016 10:45) Final results Test Result Flag Units (Reference) WHITE BLOOD COUNT 10.7 K/uL (4.5-11.5) RED BLOOD COUNT 5.48 H M/uL (4.00-5.20) HEMOGLOBIN 15.5 gm/dL (12.0-16.0) HEMATOCRIT 46.5 H % (36.0-46.0) MEAN CELL VOLUME 85 fL (80-100) MEAN CORPUSCULAR HGB 28 pg (26-34) MEAN CORPUSCULAR HGB CONC 33 g/dL (31-37) RED CELL DISTRIBUTION WIDTH 13.5 % (11.6-14.8) PLATELET COUNT 276 K/uL (150-400) NEUTROPHIL % 65.0 % (50-75) LYMPH % 26.9 % (25-40) MONO % 3.8 % (3-14) EOSINOPHIL % 3.4 % (0-4) BASOPHIL % 0.9 % (0-2) [id number]: (EDER: 05/16/2016 10:30) ( [facility]16[facility] 10[facility]53) Final results Test Result Flag Units (Reference) D-DIMER QUANTITATIVE 0.37 ug/mLFEU (0.27-0.52) The primary value of this quantitative assay relates toits negative predictive value (i.e. exclusion) of pulmonaryembolism/deep vein thrombosis/DIC.Elevated levels of d-dimer may also occur with:, age, cancer, inflammation, liver disease,post-op, infection, hematoma, coronary disease, peripheralarteriopathy, bleeding disorders and thrombolytic treatment.Results should be correlated with other clinical andradiological data.Testing Methodology: Latex Immunoassay Acetone, Serum: (EDER: 05/16/2016 10:30) ( [facility] 05/16/2016 10:58) Final results Test Result Flag Units (Reference) ACETONE, SERUM QUALITATIVE NEGATIVE (NEGATIVE) BNP: (EDER: 05/16/2016 10:30) ( [facility] 05/16/2016 11:13) Final results Test Result Flag Units (Reference) B-TYPE NATRIURETIC PEPTIDE < 5.0 L pg/ml (5-100) CHEM 13 PANEL: (EDER: 05/16/2016 10:30) ( [facility] 05/16/2016 11:03) IP Test Result Flag Units (Reference) GLUCOSE 276 H mg/dL (70-110) BUN 12 mg/dL (7-18) CREATININE 0.6 mg/dL (0.6-1.3) Estimated GFR >60 mL/min Estimated GFR- >60 mL/min Note: Persistent reduction over 3 months in eGFR<60 mL/min/1.73 m2 defines CKD. Patients with eGFR values>=60 mL/min/1.73 m2 may also have CKD if evidence ofpersistent proteinuria. Additional information may be foundat [email or web address].org. SODIUM 138 mmol/L (136-145) POTASSIUM 4.2 mmol/L (3.5-5.1) CHLORIDE 100 mmol/L (98-107) CARBON DIOXIDE 23 mmol/L (21-32) CALCIUM 9.7 mg/dL (8.5-10.1) CPK 54 U/L (24-260) . Pulse Oximetry: 05/16/2016 09:58 O2 saturation: 93%. (FIO2 - room air). Interpretation: hypoxemia. PROGRESS AND PROCEDURES Course of Care: Made f/u appt for pt with [facility], but she refused to accept the appt time - states she may have a pulmonary appt on that day, so we cancelled the appt per her request. Patient is stable. Physical exam findings are improved. Symptoms much better. Patient/family counseled. Old ED and clinic records reviewed. Patient has had multiple ED visits (GARY with 8 visits to area ED's in past 12 months - PRMCE x 5; CVH x3; [facility] records reviewed). Disposition: Discharged. Condition: stable and improved. CLINICAL IMPRESSION Diarrhea Nausea. Vomiting with nausea. Stable COPD. Chronic, moderately well controlled type 2 diabetes with hyperglycemia. INSTRUCTIONS Do not work for three days. Drink plenty of fluids. Do not smoke. Seek medical help to quit smoking. Warnings: Further evaluation is necessary in order to recheck abnormal lab, obtain test results, conduct further tests and assess the possibility of serious illness. It is very important to follow up with a physician. GENERAL WARNINGS: Return or contact your physician immediately if your condition worsens or changes unexpectedly, if not improving as expected, or if other problems arise. Prescription Medications: Zofran (orally disintegrating tablets) 4 mg: take 1 orally every 8 hours as needed for nausea and vomiting. Dispense ten (10). No refill. Substitution is permissible. Follow-up: Follow up with your doctor at the [facility]; there is a walk-in clinic at the [facility] available 7 days per week for your convenience. Call for the next available appointment. Follow up with a wall covering contractor in about five days as scheduled. (Electronically signed by Jurgen Ellison DO 05/17/2016 8:26)
--- NOTE | 2016-05-16 11:25 | ED ORDER SUMMARY ---
..... Patient: POLLY CALHOUN OrderSheet [facility] VisitID: [id number] [place] [address] 45y, F Registration Date/Time: 05/16/2016 ORDER SHEET Weight: 31.7 kg (stated) Allergies: Latuda, [place], Risperdal GENERAL ORDERS: Chest 2V (recent porssible pneumonia - on antibiotics) Urgent (10:05/16/2016 PHutchinson DO) (Ack 10:13 RKaruga) (11:47 Katelyn R.N.) City Collector (Continuous) (10:05/16/2016 PHutchinson DO) (Ack 10:22 Katelyn R.N.) (11:00 Katelyn R.N.) UA-Culture if indicated Urgent (10:05/16/2016 PHutchinson DO) (Ack 10:13 RKaruga) (10:38 Katelyn R.N.) Cardiac Panel Stat (10:05/16/2016 PHutchinson DO) (Ack 10:13 RKaruga) (10:38 Katelyn R.N.) BNP Urgent (10:05/16/2016 PHutchinson DO) (Ack 10:13 RKaruga) (10:38 Katelyn R.N.) D-Dimer Urgent (10:05/16/2016 PHutchinson DO) (Ack 10:13 RKaruga) (10:38 Katelyn R.N.) Amylase Urgent (10:05/16/2016 PHutchinson DO) (Ack 10:13 RKaruga) (10:38 Katelyn R.N.) Lipase Urgent (10:05/16/2016 PHutchinson DO) (Ack 10:13 RKaruga) (10:38 Katelyn R.N.) PCT (Procalcitonin) Urgent (10:05/16/2016 PHutchinson DO) (Ack 10:13 RKaruga) (10:38 Katelyn R.N.) Oxygen (2 L/min) (NC) (10:05/16/2016 PHutchinson DO) (Ack 10:22 Katelyn R.N.) (11:00 Katelyn R.N.) Pulse oximeter (10:05/16/2016 [facility]) (Ack 10:22 Katelyn R.N.) (11:00 Katelyn R.N.) EKG - ER Stat (10:05/16/2016 [facility]) (10:13 RKaruga) Vitals (10:05/16/2016 [facility]) (Ack 10:22 Katelyn R.N.) (10:38 Katelyn R.N.) Acetone, Serum (quantitative) Urgent (10:05/16/2016 [facility]) (Ack 10:13 RKaruga) (11:47 Katelyn R.N.) Old Records (need visit from [facility] YESTERDAY) (10:05/16/2016 [facility]) (Ack 10:23 RKaruga) (11:47 Katelyn R.N.) D-Dimer Urgent (10:05/16/2016 [facility]) (Ack 10:22 Katelyn R.N.) (11:47 Katelyn R.N.) MEDICATION ORDERS: IV FLUIDS: IV NS : initial bolus 1000 mL (1000 mL/hr), then 500 mL/hr for X2 (NOW) (10:05/16/2016 [facility]) (Ack 10:22 Katelyn R.N.) (10:58 Katelyn R.N.) Zofran IV 4 mg (NOW) (10:05/16/2016 [facility]) (Ack 10:22 Katelyn R.N.) (11:00 Katelyn R.N.) ORDER SHEET NOTES: [Electronically signed by Akosua Cardenas R.N. (12:13 05/16/2016)] [Electronically signed by Jurgen Ellison DO (08:26 05/17/2016)] [Electronically locked/signed by Akosua Cardenas R.N. (12:13 05/16/2016)]
--- NOTE | 2016-05-16 11:25 | ED NURSING NOTES ---
Clinical Report - Nurses Formerly [facility] [address] [place] [address] 05/16/2016 9:53 Patient: POLLY CALHOUN TRIAGE Triage time 10:00. Acuity: LEVEL 3. Chief Complaint: DIZZINESS and DIARRHEA (high blood sugar, shaking, sweating). Alert. No acute distress. ( FBS 246). TRICIA COMA SCORE: Tricia Coma Scale: 15- eyes open spontaneously (4); best verbal response- oriented x 4 (5); best motor response- obeys commands (6). --10:10 Akosua Cardenas R.N. 09:58 05/16/16. BP: 131/79. HR: 102. RR: 20. O2 saturation: 93%. Temp: 98.2 F. Pain level now: cannot qualify. --10:10 Akosua Cardenas R.N. Weight: 31.7 kg stated. Height/Length: 63 inches Per Patient. BMI: 12.4. --10:03 Akosua Cardenas R.N. Medications Abilify Oral. Atorvastatin Calcium Oral. Effexor XR Oral. Glimepiride Oral (Tablet 4 mg) 2 tablets, daily. LamoTRIgine Oral. --10:02 Akosua Cardenas R.N. Magnesium Oral. MetFORMIN HCl Oral. Omeprazole Oral. TraZODone HCl Oral. --10:02 Akosua Cardenas R.N. Erythromycin Base Oral ( has one day left (for her pneumonia)). --10:03 Akosua Cardenas R.N. Medication/allergy information source: the patient. --10:10 Akosua Cardenas R.N. Allergies Latuda. [place]. Risperdal. --10:02 Akosua Cardenas R.N. History Arrived by private vehicle. Historian: patient. Unaccompanied. Primary physician (Rachel). Onset. (this week). ( seen here, saw her doctor yesterday). SOCIAL HX: Heavy tobacco smoker- less than 1 pack per day. No alcohol use or drug use. FALL RISK ASSESSMENT: Fall risk assessment completed. No fall risk identified. FUNCTIONAL ASSESSMENT: Functional assessment: no impairments noted. LEARNING NEEDS ASSESSMENT: The learning needs assessment revealed no barriers. --10:10 Akosua Cardenas R.N. PROBLEMS: Hyperglycemia. Short Term Memory Problems. Bipolar Disorder. Elevated LFTs. Pneumonia. COPD - Chronic Obstructive Pulmonary Disease. Bronchitis. Diabetes Mellitus. --10:04 Akosua Cardenas R.N. ADDITIONAL SURGERIES: Hysterectomy. --10:04 Akosua Cardenas R.N. Assessment GENERAL / NEURO / PSYCH: Alert. Oriented X 4. Appears in no acute distress. Patient appears calm and cooperative. RESPIRATORY: Respirations not labored. SKIN: Skin is warm and dry. --10:10 Akosua Cardenas R.N. Interventions ID and allergy band on patient. To treatment room. --10:10 Akosua Cardenas R.N. PHYSICAL ASSESSMENT 10:15 05/16/16. To room via wheelchair. Patient gowned. GENERAL / NEURO / PSYCH: The patient is awake and alert, appears uncomfortable and is oriented. She appears anxious and agitated and has poor eye contact. RESPIRATORY: Respirations not labored. SKIN: Skin is warm and dry. --10:16 Akosua Cardenas R.N. NURSING PROGRESS NOTES 10:16 05/16/16. Pulse oximeter and NIBP monitor placed on patient. Patient gowned. Head of bed elevated. Call light placed in reach. Side rails up x 1. Bed placed in lowest position. Brakes of bed on. --10:16 Akosua Cardenas R.N. 10:16 05/16/16. :patient confirmed. Clean catch urine collected; sample sent to lab. Specimen labeled in the presence of the patient. --10:16 Akosua Cardenas R.N. Finger stick glucose: 246 mg/dL; performed by nurse. --10:18 Akosua Cardenas R.N. 10:37 05/16/2016 Site #1 started via IV in the right hand with an 20g angiocath, with aseptic technique and good blood return; one attempt. Blood drawn: rainbow set. Labeled in the presence of the patient and sent to the lab. Saline lock flushed with 10 mL saline. --10:37 Aksoua Cardenas R.N. 10:53 05/16/2016 Started bag #1 1000 mL IV Fluids IV NS (Saline); at 1000 mL/hr over 1 hour(s) via site #1 via IV pump. --10:58 Akosua Cardenas R.N. 11:00 05/16/2016 Zofran (Ondansetron HCl) IVP 4 mg given over 2 minute(s) via site #1. Allergies verified and confirmed 5 rights. IV patency established. IV site checked: no pain, redness, or swelling. IV flushed thoroughly pre- and post-medication administration. IVP given by RN. --11:00 Akosua Cardenas R.N. 11:01 05/16/16. The patient is resting quietly. Overall patient status is the same- she states feels the same. RESPIRATORY: No respiratory distress. SKIN: Skin is warm and dry. --11:01 Akosua Cardenas R.N. EKG time: (10:32). EKG was performed by a tech and shown to the ED physician. --11:31 Blaine Licona 11:40. The patient is calm and resting quietly. Overall patient status is improved- she states feels better. RESPIRATORY: No respiratory distress. SKIN: Skin is warm and dry. --11:46 Akosua Cardenas R.N. pt was on 2L of oxygen per NC from 1030 - 1135. --11:47 Akosua Cardenas R.N. 11:40 05/16/2016 Site #1 removed upon discharge. Catheter intact. Bandaid applied. --12:12 Akosua Cardenas R.N. 11:40 05/16/2016 IV Fluids IV NS Discontinued: bag #1 infused. Total amount infused: 1000 mL. --12:12 Akosua Cardenas R.N. DISPOSITION / DISCHARGE Departure time: 1140. Condition at departure: improved and stable. No learning barriers present. Discharge instructions provided and reviewed with the patient. Reviewed medication(s). Prescription(s) given to the patient. Patient verbalized understanding. Written instructions provided in Indonesian. The patient was discharged home and unaccompanied at time of discharge. She left the Emergency Department ambulatory and via private vehicle. Patient driving. FALL RISK ASSESSMENT: Fall risk assessment completed. No fall risk identified. --11:45 Akosua Cardenas R.N. 11:42 05/16/16. BP: 145/83. HR: 93. RR: 25. O2 saturation: 94% on room air. Pain level now: 04/11. --11:45 Akosua Cardenas R.N. Locked/Released at 05/16/2016 12:13 by Akosua Cardenas R.N.
--- NOTE | 2016-05-16 12:22 | DIAGNOSTIC IMAGING REPORT ---
PROCEDURE: XR CHEST 2 VIEW INDICATION: COUGH TECHNIQUE: PA and lateral views. COMPARISON: Chest 05/12/2016 and 03/22/2015 FINDINGS: Lungs are clear. Heart and mediastinum are normal. Thorax is normal. IMPRESSION: 1. Negative chest.
--- NOTE | 2016-05-17 08:26 | ED MED RECONCILIATION SUMMARY ---
Patient: POLLY CALHOUN Medication Reconciliation Report [facility] VisitID: [id number] [address] [place] [address] 45y, F Registration Date/Time: 05/16/2016 Weight: 31.7 kg Height/Length: 63 in. BMI: 12.4 ALLERGIES: Latuda, [place], Risperdal The patient's Home Medications are listed below: THE FOLLOWING MEDICATIONS NEED TO BE RECONCILED: Abilify Oral Atorvastatin Calcium Oral Azithromycin Oral 250 mg, daily, one dose left Effexor XR Oral Glimepiride Oral (4 mg) 2 tablets, daily LamoTRIgine Oral Magnesium Oral MetFORMIN HCl Oral Omeprazole Oral TraZODone HCl Oral The source(s) of the original Home Medication information: patient The following Medications were given to the patient in the Emergency Department: IV NS IV Fluids bolus 0, then 1000 mL/hr, administered: 05/16/2016 10:53:00 AM Zofran [IVP] IVP 4 mg, administered: 05/16/2016 11:00:00 AM The following Medications were prescribed to the patient: Zofran (orally disintegrating tablets) 4 mg: take 1 orally every 8 hours as needed for nausea and vomiting. Dispense ten (10). No refill. Substitution is permissible. -- Jurgen Ellison,
--- NOTE | 2016-05-17 08:26 | ED MED RECONCILIATION SUMMARY ---
Patient: POLLY CALHOUN Medication Reconciliation Report [facility] VisitID: [id number] [address] [place] [address] 45y, F Registration Date/Time: 05/16/2016 Weight: 31.7 kg Height/Length: 63 in. BMI: 12.4 ALLERGIES: [place], [place], Risperdal The patient's Home Medications are listed below: THE FOLLOWING MEDICATIONS NEED TO BE RECONCILED: Abilify Oral Atorvastatin Calcium Oral Azithromycin Oral 250 mg, daily, one dose left Effexor XR Oral Glimepiride Oral (4 mg) 2 tablets, daily LamoTRIgine Oral Magnesium Oral MetFORMIN HCl Oral Omeprazole Oral TraZODone HCl Oral The source(s) of the original Home Medication information: patient The following Medications were given to the patient in the Emergency Department: IV NS IV Fluids bolus 0, then 1000 mL/hr, administered: 05/16/2016 10:53:00 AM Zofran [IVP] IVP 4 mg, administered: 05/16/2016 11:00:00 AM The following Medications were prescribed to the patient: Zofran (orally disintegrating tablets) 4 mg: take 1 orally every 8 hours as needed for nausea and vomiting. Dispense ten (10). No refill. Substitution is permissible. -- Jurgen Ellison,
--- NOTE | 2016-05-17 08:26 | ED MAR SUMMARY ---
..... Medication Administration Record [facility] [address] [address] Patient: POLLY CALHOUN Visit ID: [id number] 45y, F Weight: 31.7 kg Height/Length: 63 in BMI: 12.4 ALLERGIES: Latuda, [place], Risperdal Start 10:53 05/16/2016 Akosua Cardenas R.N., Stop 11:40 05/16/2016 Akosua Cardenas R.N. Medication Administered: IV NS (SALINE), Dose: IV Fluids over 1 hour(s), Rate: 1000 mL/hr, Dispensed: 1000 mL bag, Site: #1 right hand. Medication Ordered: IV NS : initial bolus 1000 mL (1000 mL/hr), then 500 mL/hr for X2 (NOW). Given 11:00 05/16/2016 Akosua Cardenas R.N. Medication Administered: ZOFRAN [IVP] (ONDANSETRON HCL), Dose: 4 mg IVP over 2 minute(s), Site: #1 right hand. Medication Ordered: Zofran IV 4 mg (NOW).
--- NOTE | 2016-05-17 08:26 | ED DISCHARGE INSTRUCTIONS ---
Patient: POLLY CALHOUN General Instructions [facility] VisitID: [id number] [place] [address] 45y, F Registration Date/Time: 05/16/2016 Diarrhea Nausea. Vomiting with nausea. Stable COPD. Chronic, moderately well controlled type 2 diabetes with hyperglycemia. INSTRUCTIONS Do not work for three days. Drink plenty of fluids. Do not smoke. Seek medical help to quit smoking. Warnings: Further evaluation is necessary in order to recheck abnormal lab, obtain test results, conduct further tests and assess the possibility of serious illness. It is very important to follow up with a physician. GENERAL WARNINGS: Return or contact your physician immediately if your condition worsens or changes unexpectedly, if not improving as expected, or if other problems arise. Prescription Medications: Zofran (orally disintegrating tablets) 4 mg: take 1 orally every 8 hours as needed for nausea and vomiting. Dispense ten (10). No refill. Substitution is permissible. Follow-up: Follow up with your doctor at the [facility]; there is a walk-in clinic at the [facility] available 7 days per week for your convenience. Call for the next available appointment. Follow up with a orthopaedic technologist in about five days as scheduled. ADDITIONAL INFORMATION Diarrhea, Uncertain Cause (Adult, Report Pending) Diarrhea has several possible causes. Commonstomach fluis caused by a virus. Food poisoning, bacteria or parasites are other causes for diarrhea. Only diarrhea caused by bacteria or parasites requires treatment with an antibiotic. Diarrhea from a virus or food poisoning improves with simple home treatment. A stool sample is needed to make the diagnosis of an infection with bacteria or parasites. Up to three stool specimens may be required to diagnose This may take up to two days to get the result. It may be necessary to wait until the stool test is complete to make the diagnosis and select the best antibiotic to prescribe. Home Care: If symptoms are severe, rest at home for the next 24 hours or until you are feeling better. You may use acetaminophen (Tylenol) or ibuprofen (Motrin, Advil) to control fever, unless another medicine was prescribed. [NOTE: If you have chronic liver or kidney disease or ever had a stomach ulcer or GI bleeding, talk with your doctor before using these medicines.] (Aspirin should never be used in anyone under 18 years of age who is ill with a fever. It may cause severe liver damage.) Avoid tobacco, caffeine and alcohol, which may worsen your symptoms. If anti-diarrhea medicine was prescribed, take this only as directed. Sometimes anti-diarrhea medicine can make your condition worse if the cause is an infectious diarrhea. Therefore, anti-diarrhea medicine should not be taken for this condition unless advised by your doctor. During The First 12-24 Hours follow the diet below: BEVERAGES: Sport drinks like Gatorade, soft drinks without caffeine; karl amaris, mineral water (plain or flavored), decaffeinated tea and coffee. SOUPS: Clear broth, consomm and bouillon DESSERTS: Plain gelatin (Jell-O), popsicles and fruit juice bars. During The Next 24 Hours you may add the following to the above: Hot cereal, plain toast, bread, rolls, crackers Plain noodles, rice, mashed potatoes, chicken noodle or rice soup Unsweetened canned fruit (avoid pineapple), bananas Limit fat intake to less than 15 grams per day by avoiding margarine, butter, oils, mayonnaise, sauces, gravies, fried foods, peanut butter, meat, poultry and fish. Limit fiber; avoid raw or cooked vegetables, fresh fruits (except bananas) and bran cereals. Limit caffeine and chocolate. No spices or seasonings except salt. During The Next 24 Hours Gradually resume a normal diet, as you feel better and your symptoms lessen. Follow Up with your doctor or as advised if you are not improving over the next two days. If you were asked to bring a specimen from home, bring the sample on the day of collection. You may call in 2 days (or as directed) for the results. Get Prompt Medical Attention if any of the following occur: Increasing abdominal pain or constant lower right abdominal pain Continued vomiting (unable to keep liquids down) Frequent diarrhea (more than 5 times a day) Blood in vomit or stool (black or red color) Reduced oral intake Dark urine, reduced urine output Weakness, dizziness, fainting Drowsiness, confusion, stiff neck or seizure Fever of 100.4F (38C) oral or higher, not better with fever medication New rash Vomiting [6Yr-Adult] Vomiting is a common symptom that may be due to different causes. These include gastroenteritis ("stomach flu"), food poisoning and gastritis. There are other more serious causes of vomiting which may be hard to diagnose early in the illness. Therefore, it is important to watch for the warning signs listed below. The main danger from repeated vomiting is dehydration. This is due to excess loss of water and minerals from the body. When this occurs, body fluids must be replaced. Home Care: If symptoms are severe, rest at home for the next 24 hours. You may use acetaminophen (Tylenol) or ibuprofen (Motrin, Advil) to control fever, unless another medicine was prescribed. [NOTE : If you have chronic liver or kidney disease or ever had a stomach ulcer or GI bleeding, talk with your doctor before using these medicines.] (Aspirin should never be used in anyone under 18 years of age who is ill with a fever. It may cause severe liver damage.) Avoid tobacco and alcohol use, which may worsen your symptoms. If medicines for vomiting were prescribed, take as directed. Once vomiting stops, then follow these guidelines: During The First 12-24 Hours follow the diet below: FRUIT JUICES: Apple, grape juice, clear fruit drinks, and electrolyte replacement drinks. BEVERAGES: Soft drinks without caffeine; mineral water (plain or flavored), decaffeinated tea and coffee. SOUPS: Clear broth, consomm and bouillon DESSERTS: Plain gelatin, popsicles and fruit juice bars. As you feel better, you may add 6-8 ounces of yogurt per day. During The Next 24 Hours you may add the following to the above: Hot cereal, plain toast, bread, rolls, crackers Plain noodles, rice, mashed potatoes, chicken noodle or rice soup Unsweetened canned fruit (avoid pineapple), bananas Limit caffeine and chocolate. No spices or seasonings except salt. During The Next 24 Hours Gradually resume a normal diet, as you feel better and your symptoms lessen. Follow Up with your doctor as advised if you are not improving over the next 2-3 days. Get Prompt Medical Attention if any of the following occur: Constant right-sided lower abdominal pain or increasing general abdominal pain Continued vomiting (unable to keep liquids down) for 24 hours Frequent diarrhea (more than 5 times a day); blood (red or black color) or mucus in diarrhea Reduced urine output or extreme thirst Weakness, dizziness or fainting Unusually drowsy or confused Fever of 100.4F (38C) oral or higher, not better with fever medication Yellow color of the eyes or skin How To Quit Smoking Smoking is one of the hardest habits to break. About half of all those who have ever smoked have been able to quit, and most of those (about 70%) who still smoke want to quit. Here are some of the best ways to stop smoking. Keep Trying: It takes most smokers about 8 tries before they are finally able to fully quit. So, the more often you try and fail, the better your chance of quitting the next time! So, don't give up! Go Cold Copen: Most ex-smokers quit cold turkey. Trying to cut back gradually doesn't seem to work as well, perhaps because it continues the smoking habit. Also, it is possible to fool yourself by inhaling more while smoking fewer cigarettes. This results in the same amount of nicotine in your body! Get Support: Support programs can make an important difference, especially for the heavy smoker. These groups offer lectures, methods to change your behavior and peer support. Call the free national Quitline for more information. 236-PPKS-TAQ (586-055-5860). Low-cost or free programs are offered by many hospitals, local chapters of the [place] [employer] (740-965-7998) and the [place] [employer] (606-917-2451). Support at home is important too. Non-smokers can help by offering praise and encouragement. If the smoker fails to quit, encourage them to try again! Smbu-Fuq-Sdtjmad Medicines: For those who can't quit on their own, Nicotine Replacement Therapy (NRT) may make quitting much easier. Certain aids such as the nicotine patch, gum and lozenge are available without a prescription. However, it is best to use these under the guidance of your doctor. The skin patch provides a steady supply of nicotine to the body. Nicotine gum and lozenge gives temporary bursts of low levels of nicotine. Both methods take the edge off the craving for cigarettes. WARNING: If you feel symptoms of nicotine overdose, such as nausea, vomiting, dizziness, weakness, or fast heartbeat, stop using these and see your doctor. Prescription Medicines: After evaluating your smoking patterns and prior attempts at quitting, your doctor may offer a prescription medicine such as bupropion (Zyban, Wellbutrin), varenicline (Chantix, Champix), a niocotine inhaler or nasal spray. Each has its unique advantage and side effects which your doctor can review with you. Health Benefits Of Quitting: The benefits of quitting start right away and keep improving the longer you go without smokin minutes: blood pressure and pulse return to normal 8 hours: oxygen levels return to normal 2 days: ability to smell and taste begins to improve as damaged nerves start to regrow 2-3 weeks: circulation and lung function improves 1-9 months: decreased cough, congestion and shortness of breath; less tired 1 year: risk of heart attack decreases by half 5 years: risk of lung cancer decreases by half; risk of stroke becomes the same as a non-smoker For information about how to quit smoking, visit the following links: National Cancer [place] , Clearing the Air, Quit Smoking Today - an online booklet. http://www.smokefree.gov/pubs/clearing_the_air.pdf Smokefree.gov http://smokefree.gov/ QuitNet http://www.quitnet.com/ Ondansetron Oral disintegrating tablet What is this medicine? ONDANSETRON (on ONEIDA se mariela) is used to treat nausea and vomiting caused by chemotherapy. It is also used to prevent or treat nausea and vomiting after surgery. How should I use this medicine? These tablets are made to dissolve in the mouth. Do not try to push the tablet through the foil backing. With dry hands, peel away the foil backing and gently remove the tablet. Place the tablet in the mouth and allow it to dissolve, then swallow. While you may take these tablets with water, it is not necessary to do so. Talk to your auto inspection specialist regarding the use of this medicine in children. Special care may be needed. What side effects may I notice from receiving this medicine? Side effects that you should report to your doctor or health patient care nursing assistant as soon as possible: allergic reactions like skin rash, itching or hives, swelling of the face, lips, or tongue breathing problems dizziness fast or irregular heartbeat feeling faint or lightheaded, falls fever and chills swelling of the hands and feet tightness in the chest Side effects that usually do not require medical attention (report to your doctor or health patient care nursing assistant if they continue or are bothersome): constipation or diarrhea headache What may interact with this medicine? Do not take this medicine with any of the following medications: -apomorphine -cisapride -dofetilide -dronedarone -pimozide -thioridazine -ziprasidone This medicine may also interact with the following medications: -carbamazepine -phenytoin -rifampicin -tramadol -other medicines that prolong the QT interval (cause an abnormal heart rhythm) What if I miss a dose? If you miss a dose, take it as soon as you can. If it is almost time for your next dose, take only that dose. Do not take double or extra doses. Where should I keep my medicine? Keep out of the reach of children. Store between 2 and 30 degrees C (36 and 86 degrees F). Throw away any unused medicine after the expiration date. What should I tell my health care provider before I take this medicine? They need to know if you have any of these conditions: heart disease history of irregular heartbeat liver disease low levels of magnesium or potassium in the blood an unusual or allergic reaction to ondansetron, granisetron, other medicines, foods, dyes, or preservatives or trying to get breast-feeding What should I watch for while using this medicine? Check with your doctor or health patient care nursing assistant as soon as you can if you have any sign of an allergic reaction. You have been given the following additional information: Diarrhea, Unk Cause (Adult) Report Pendg Vomiting (6Y-Adult) Smoking Cessation Ondansetron Oral disintegrating tablet Do not work for three days. (Electronically signed by Jurgen Ellison DO 05/17/2016 8:26)
--- NOTE | 2016-05-17 08:26 | ED MAR SUMMARY ---
..... Medication Administration Record [facility] [address] [address] Patient: POLLY CALHOUN Visit ID: [id number] 45y, F Weight: 31.7 kg Height/Length: 63 in BMI: 12.4 ALLERGIES: [place], [place], Risperdal Start 10:53 05/16/2016 Akosua Cardenas R.N., Stop 11:40 05/16/2016 Akosua Cardenas R.N. Medication Administered: IV NS (SALINE), Dose: IV Fluids over 1 hour(s), Rate: 1000 mL/hr, Dispensed: 1000 mL bag, Site: #1 right hand. Medication Ordered: IV NS : initial bolus 1000 mL (1000 mL/hr), then 500 mL/hr for X2 (NOW). Given 11:00 05/16/2016 Akosua Cardenas R.N. Medication Administered: ZOFRAN [IVP] (ONDANSETRON HCL), Dose: 4 mg IVP over 2 minute(s), Site: #1 right hand. Medication Ordered: Zofran IV 4 mg (NOW).
--- NOTE | 2016-05-17 08:26 | ED DISCHARGE INSTRUCTIONS ---
Patient: POLLY CALHOUN General Instructions [facility] VisitID: [id number] [place] [address] 45y, F Registration Date/Time: 05/16/2016 Diarrhea Nausea. Vomiting with nausea. Stable COPD. Chronic, moderately well controlled type 2 diabetes with hyperglycemia. INSTRUCTIONS Do not work for three days. Drink plenty of fluids. Do not smoke. Seek medical help to quit smoking. Warnings: Further evaluation is necessary in order to recheck abnormal lab, obtain test results, conduct further tests and assess the possibility of serious illness. It is very important to follow up with a physician. GENERAL WARNINGS: Return or contact your physician immediately if your condition worsens or changes unexpectedly, if not improving as expected, or if other problems arise. Prescription Medications: Zofran (orally disintegrating tablets) 4 mg: take 1 orally every 8 hours as needed for nausea and vomiting. Dispense ten (10). No refill. Substitution is permissible. Follow-up: Follow up with your doctor at the [facility]; there is a walk-in clinic at the [facility] available 7 days per week for your convenience. Call for the next available appointment. Follow up with a assistant media buyer in about five days as scheduled. ADDITIONAL INFORMATION Diarrhea, Uncertain Cause (Adult, Report Pending) Diarrhea has several possible causes. Commonstomach fluis caused by a virus. Food poisoning, bacteria or parasites are other causes for diarrhea. Only diarrhea caused by bacteria or parasites requires treatment with an antibiotic. Diarrhea from a virus or food poisoning improves with simple home treatment. A stool sample is needed to make the diagnosis of an infection with bacteria or parasites. Up to three stool specimens may be required to diagnose This may take up to two days to get the result. It may be necessary to wait until the stool test is complete to make the diagnosis and select the best antibiotic to prescribe. Home Care: If symptoms are severe, rest at home for the next 24 hours or until you are feeling better. You may use acetaminophen (Tylenol) or ibuprofen (Motrin, Advil) to control fever, unless another medicine was prescribed. [NOTE: If you have chronic liver or kidney disease or ever had a stomach ulcer or GI bleeding, talk with your doctor before using these medicines.] (Aspirin should never be used in anyone under 18 years of age who is ill with a fever. It may cause severe liver damage.) Avoid tobacco, caffeine and alcohol, which may worsen your symptoms. If anti-diarrhea medicine was prescribed, take this only as directed. Sometimes anti-diarrhea medicine can make your condition worse if the cause is an infectious diarrhea. Therefore, anti-diarrhea medicine should not be taken for this condition unless advised by your doctor. During The First 12-24 Hours follow the diet below: BEVERAGES: Sport drinks like Gatorade, soft drinks without caffeine; karl amaris, mineral water (plain or flavored), decaffeinated tea and coffee. SOUPS: Clear broth, consomm and bouillon DESSERTS: Plain gelatin (Jell-O), popsicles and fruit juice bars. During The Next 24 Hours you may add the following to the above: Hot cereal, plain toast, bread, rolls, crackers Plain noodles, rice, mashed potatoes, chicken noodle or rice soup Unsweetened canned fruit (avoid pineapple), bananas Limit fat intake to less than 15 grams per day by avoiding margarine, butter, oils, mayonnaise, sauces, gravies, fried foods, peanut butter, meat, poultry and fish. Limit fiber; avoid raw or cooked vegetables, fresh fruits (except bananas) and bran cereals. Limit caffeine and chocolate. No spices or seasonings except salt. During The Next 24 Hours Gradually resume a normal diet, as you feel better and your symptoms lessen. Follow Up with your doctor or as advised if you are not improving over the next two days. If you were asked to bring a specimen from home, bring the sample on the day of collection. You may call in 2 days (or as directed) for the results. Get Prompt Medical Attention if any of the following occur: Increasing abdominal pain or constant lower right abdominal pain Continued vomiting (unable to keep liquids down) Frequent diarrhea (more than 5 times a day) Blood in vomit or stool (black or red color) Reduced oral intake Dark urine, reduced urine output Weakness, dizziness, fainting Drowsiness, confusion, stiff neck or seizure Fever of 100.4F (38C) oral or higher, not better with fever medication New rash Vomiting [6Yr-Adult] Vomiting is a common symptom that may be due to different causes. These include gastroenteritis ("stomach flu"), food poisoning and gastritis. There are other more serious causes of vomiting which may be hard to diagnose early in the illness. Therefore, it is important to watch for the warning signs listed below. The main danger from repeated vomiting is dehydration. This is due to excess loss of water and minerals from the body. When this occurs, body fluids must be replaced. Home Care: If symptoms are severe, rest at home for the next 24 hours. You may use acetaminophen (Tylenol) or ibuprofen (Motrin, Advil) to control fever, unless another medicine was prescribed. [NOTE : If you have chronic liver or kidney disease or ever had a stomach ulcer or GI bleeding, talk with your doctor before using these medicines.] (Aspirin should never be used in anyone under 18 years of age who is ill with a fever. It may cause severe liver damage.) Avoid tobacco and alcohol use, which may worsen your symptoms. If medicines for vomiting were prescribed, take as directed. Once vomiting stops, then follow these guidelines: During The First 12-24 Hours follow the diet below: FRUIT JUICES: Apple, grape juice, clear fruit drinks, and electrolyte replacement drinks. BEVERAGES: Soft drinks without caffeine; mineral water (plain or flavored), decaffeinated tea and coffee. SOUPS: Clear broth, consomm and bouillon DESSERTS: Plain gelatin, popsicles and fruit juice bars. As you feel better, you may add 6-8 ounces of yogurt per day. During The Next 24 Hours you may add the following to the above: Hot cereal, plain toast, bread, rolls, crackers Plain noodles, rice, mashed potatoes, chicken noodle or rice soup Unsweetened canned fruit (avoid pineapple), bananas Limit caffeine and chocolate. No spices or seasonings except salt. During The Next 24 Hours Gradually resume a normal diet, as you feel better and your symptoms lessen. Follow Up with your doctor as advised if you are not improving over the next 2-3 days. Get Prompt Medical Attention if any of the following occur: Constant right-sided lower abdominal pain or increasing general abdominal pain Continued vomiting (unable to keep liquids down) for 24 hours Frequent diarrhea (more than 5 times a day); blood (red or black color) or mucus in diarrhea Reduced urine output or extreme thirst Weakness, dizziness or fainting Unusually drowsy or confused Fever of 100.4F (38C) oral or higher, not better with fever medication Yellow color of the eyes or skin How To Quit Smoking Smoking is one of the hardest habits to break. About half of all those who have ever smoked have been able to quit, and most of those (about 70%) who still smoke want to quit. Here are some of the best ways to stop smoking. Keep Trying: It takes most smokers about 8 tries before they are finally able to fully quit. So, the more often you try and fail, the better your chance of quitting the next time! So, don't give up! Go [place]: Most ex-smokers quit cold turkey. Trying to cut back gradually doesn't seem to work as well, perhaps because it continues the smoking habit. Also, it is possible to fool yourself by inhaling more while smoking fewer cigarettes. This results in the same amount of nicotine in your body! Get Support: Support programs can make an important difference, especially for the heavy smoker. These groups offer lectures, methods to change your behavior and peer support. Call the free national Quitline for more information. 650-YNXX-QCI (912-324-8411). Low-cost or free programs are offered by many hospitals, local chapters of the [employer] (240-309-1816) and the [employer] (634-969-6959). Support at home is important too. Non-smokers can help by offering praise and encouragement. If the smoker fails to quit, encourage them to try again! Omim-Odj-Ppftexx Medicines: For those who can't quit on their own, Nicotine Replacement Therapy (NRT) may make quitting much easier. Certain aids such as the nicotine patch, gum and lozenge are available without a prescription. However, it is best to use these under the guidance of your doctor. The skin patch provides a steady supply of nicotine to the body. Nicotine gum and lozenge gives temporary bursts of low levels of nicotine. Both methods take the edge off the craving for cigarettes. WARNING: If you feel symptoms of nicotine overdose, such as nausea, vomiting, dizziness, weakness, or fast heartbeat, stop using these and see your doctor. Prescription Medicines: After evaluating your smoking patterns and prior attempts at quitting, your doctor may offer a prescription medicine such as bupropion (Zyban, Wellbutrin), varenicline (Chantix, Champix), a niocotine inhaler or nasal spray. Each has its unique advantage and side effects which your doctor can review with you. Health Benefits Of Quitting: The benefits of quitting start right away and keep improving the longer you go without smokin minutes: blood pressure and pulse return to normal 8 hours: oxygen levels return to normal 2 days: ability to smell and taste begins to improve as damaged nerves start to regrow 2-3 weeks: circulation and lung function improves 1-9 months: decreased cough, congestion and shortness of breath; less tired 1 year: risk of heart attack decreases by half 5 years: risk of lung cancer decreases by half; risk of stroke becomes the same as a non-smoker For information about how to quit smoking, visit the following links: National [employer] , Clearing the Air, Quit Smoking Today - an online booklet. http://www.smokefree.gov/pubs/clearing_the_air.pdf Smokefree.gov http://smokefree.gov/ QuitNet http://www.quitnet.com/ Ondansetron Oral disintegrating tablet What is this medicine? ONDANSETRON (on ONEIDA se mariela) is used to treat nausea and vomiting caused by chemotherapy. It is also used to prevent or treat nausea and vomiting after surgery. How should I use this medicine? These tablets are made to dissolve in the mouth. Do not try to push the tablet through the foil backing. With dry hands, peel away the foil backing and gently remove the tablet. Place the tablet in the mouth and allow it to dissolve, then swallow. While you may take these tablets with water, it is not necessary to do so. Talk to your voice professor regarding the use of this medicine in children. Special care may be needed. What side effects may I notice from receiving this medicine? Side effects that you should report to your doctor or health daycare assistant as soon as possible: allergic reactions like skin rash, itching or hives, swelling of the face, lips, or tongue breathing problems dizziness fast or irregular heartbeat feeling faint or lightheaded, falls fever and chills swelling of the hands and feet tightness in the chest Side effects that usually do not require medical attention (report to your doctor or health daycare assistant if they continue or are bothersome): constipation or diarrhea headache What may interact with this medicine? Do not take this medicine with any of the following medications: -apomorphine -cisapride -dofetilide -dronedarone -pimozide -thioridazine -ziprasidone This medicine may also interact with the following medications: -carbamazepine -phenytoin -rifampicin -tramadol -other medicines that prolong the QT interval (cause an abnormal heart rhythm) What if I miss a dose? If you miss a dose, take it as soon as you can. If it is almost time for your next dose, take only that dose. Do not take double or extra doses. Where should I keep my medicine? Keep out of the reach of children. Store between 2 and 30 degrees C (36 and 86 degrees F). Throw away any unused medicine after the expiration date. What should I tell my health care provider before I take this medicine? They need to know if you have any of these conditions: heart disease history of irregular heartbeat liver disease low levels of magnesium or potassium in the blood an unusual or allergic reaction to ondansetron, granisetron, other medicines, foods, dyes, or preservatives or trying to get breast-feeding What should I watch for while using this medicine? Check with your doctor or health daycare assistant as soon as you can if you have any sign of an allergic reaction. You have been given the following additional information: Diarrhea, Unk Cause (Adult) Report Pendg Vomiting (6Y-Adult) Smoking Cessation Ondansetron Oral disintegrating tablet Do not work for three days. (Electronically signed by Jurgen Ellison DO 05/17/2016 8:26)
== END 2016-05-16 11:40 | disposition home or self-care (01) ==
LOC: ED SRH 09:52
DX: E11.65 Type 2 diabetes mellitus with hyperglycemia (principal); R11.2 Nausea with vomiting, unspecified; R19.7 Diarrhea, unspecified; J44.9 Chronic obstructive pulmonary disease, unspecified; Z79.2 Long term (current) use of antibiotics; Z79.899 Other long term (current) drug therapy; Z79.84 Long term (current) use of oral hypoglycemic drugs; Z88.8 Allergy status to other drugs, medicaments and biological substances
CPT/HCPCS: 90004; 90098; 90100; 90301; 90616; 91320; 91556; 92235; 92530; 92610; 92720; 93004; 95059